=== PATIENT | male | born 1950 | race Caucasian/White ===

== ENCOUNTER 2023-09-19 06:40 | Day surgery (SDC) | payer OTHER, SELFPAY ==
[2023-09-12 07:39] VITALS: BMI 26.1
[2023-09-12 08:20] LABS: % Basophils 0.5 % (0-2); % Eosinophils 3.2 % (0-6); % Immature Granulocytes 0.3 % (0-0.5); % Lymphocytes 34.3 % (20.5-51.1); % Monocytes 8.5 % (1.7-9.3); % Neutrophils 53.2 % (42.2-75.2); Absolute Eosinophils 0.2 10^3/uL (0-0.7); Absolute Lymphocytes 2.3 10^3/uL (1.2-3.4); Absolute Monocytes 0.6 10^3/uL (0.1-0.6); Absolute Neutrophils 3.5 10^3/uL (1.4-6.5); Hematocrit 41.9 % (39.0-52.0); Hemoglobin 14.1 g/dL (13.0-18.0); Mean Corp Hgb Conc. 33.7 g/dL (33.0-37.0); Mean Corpuscular Hgb 29.6 pg (27.0-31.0); Mean Platelet Volume 9.3 fL (7.4-10.4); Nucleated Red Blood Cells % 0 % (-); Platelet Count 208 10^3/uL (130-400); Red Blood Cell Count 4.76 10^6/uL (4.70-6.10); White Blood Cell Count 6.6 10^3/uL (4.8-10.8)
[2023-09-12 08:44] LABS: ALT (SGPT) 33 U/L (0-50); AST (SGOT) 30 U/L (17-59); Albumin 4.2 g/dl (3.5-5.0); Alkaline Phosphatase 70 U/L (38-126); Blood Urea Nitrogen 19 mg/dl (9-20); Calcium 9.7 mg/dl (8.4-10.2); Carbon Dioxide 27 mmol/L (22-30); Chloride 101 mmol/L (98-107); Estimated Creatinine Clearance 88 ml/min; Glucose 149 mg/dl (70-99); Potassium 4.2 mmol/L (3.5-5.1); Sodium 139 mmol/L (135-145); Total Bilirubin 0.7 mg/dl (0.2-1.3); Total Protein 6.8 g/dl (6.3-8.2); eGFR > 60.00
[2023-09-19] VITALS (13 sets, daily range): BP systolic 121–149; BP diastolic 57–68
[2023-09-19 08:29] LABS: Glucose - Point of Care 139 mg/dl (70-99)
[2023-09-19] MEDS: NSS 500 IV (08:34)
--- NOTE | 2023-09-19 14:07 | ITS.CL.PACE ---
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
Pacemaker Implant
Procedure Report:
Dual Chamber Pacemaker Placement:
Mr. Messer is a very pleasant 73 yrs old gentleman who presented with syncope and non-sustained VT on Holter with baseline bradycardia and long pauses on the Hoter. He is here for an EP study with induction to estimate the need for ICD. He is
recommended for PPM placement for his severe symptomatic bradycardia and +/- ICD.�
Indications: Sick sinus syndrome, symptomatic bradycardia and Syncope with non-sustained VT.
Date of the Procedure: 09/19/2023
Pre-Operative Diagnosis: Syncope
Post-Operative Diagnosis: Syncope
Procedure Performed: EP study and DUAL CHAMBER PACEMAKER IMPLANTATION
Performing Physician:
Elma Montalvo MD
Anesthesia:
See anesthesia records
Pre-operative antibiotics:
Ancef 2gm IV
Detailed Description of the Procedure:
The patient was identified using hospital identification and informed consent obtained for the procedure. The risks were explained including, but not limited to: Bleeding, infection, arrhythmia, stroke, vascular/cardiac/lung puncture, surgery,
pacemaker dependency/device malfunction. All questions were answered.
The patient was brought to the electrophysiology laboratory in stable condition in fasting state. Continuous electrocardiographic and hemodynamic monitoring was initiated. The initial rhythm was sinus severe bradycardia.
A surgical pause and time out was performed immediately prior to the procedure with review of her medical history, recent labs, allergies and medications with site of procedure identified and consent noted in the chart. Antibiotics pre operatively
given. All team members concurred.
The procedure site was meticulously prepared with surgical scrub and allowed to dry with no pooling. Sterile draping was applied to cover the procedure site. The image intensifier was draped with sterile bag and positioned over the patient.
The left infraclavicular region was prepped and draped in the usual sterile fashion. Local anesthesia was administered subcutaneously using 1% lidocaine / Bupivacaine.
EP study and Arrhythmia Induction:
Following infiltration with local anesthetic, the axillary vein was accessed using the ultrasound and fluoroscopic guidance using the micro-puncture apparatus. The vascular sheaths were introduced for lead access. The leads were advanced into the
right ventricle and the right atrium.
The EP study was done using the leads. Programmed stimulation were delivered from the RVa. The program stimulation from the RV also attempted.
The ventricular ERP was 600/250msec. Using MUSTT protocol, the RV was stimulated till 600/200/200/200 and 400/200/200/200msec.
No sustained arrhythmia was inducible. The EP study was negative for any sustained inducible arrhythmia and PPM was recommended for symptomatic bradycardia for sick sinus syndrome.
PPM placement:
The lead was then positioned at the apical septal location and adequate passive signals noted. The right ventricular lead was secured in position with an active fixation technique at the apical septal location.
Then the atrial lead was secured with active fixation at the RAA location.
There was excellent sensing, pacing, and impedance from the leads, with no diaphragmatic stimulation at 10 V output.�Bovie cautery, antibiotics, and fluoroscopy were used.
The sheaths were withdrawn, and the thresholds remained acceptable. The leads were secured in position at the venous entry site with 0-silk. A pocket was fashioned contiguous to the incision. The electrode terminals were connected to the pulse
generator, which was placed into the pocket. The wound was irrigated thoroughly with antibiotic solution and closed in 3 layers using 2-0 V loc then 2 layers of 4-0 V loc sutures to the dermis.
Procedure End:
The procedure was tolerated well.
Estimated Blood loss:
5 cc
Specimens Removed:
No cultures and no specimens were obtained. No intraoperative pathology was identified.
Fluoro time:
0.8 min / 1.7mGy
Urine output:
None
Packs / Drains/ Tubes:
None
Instrument / Sponge Count Correct:
Yes
Complications of the Procedure:
None
Condition of Patient at Time of Transfer:
Hemodynamically stable with no neurological or vascular compromise.
Device information:�
Generator: [employer]; Model: W1DR01; Serial # [id number]�
Atrial Lead: [employer]; Model: 5076-45; Serial # [id number]�
Measured data in the right atrium was sensing of 1.5 mV, impedance of 380 ohms and threshold of 1.0V at 0.4ms.
RV Lead: [employer]; Model: 5076-52; Serial # [id number]
Measured data in the RV lead was sensing of 7mV, impedance of 870ohms and threshold of 1.0V at 0.4ms�
[place] parameter settings were AAIR <=>DDDR 60-130 bpm. �
����������� Mode Switch: On
����������� Paced AV interval: 180ms
����������� Sensed AV interval: 150 ms.
����������� Rate Adaptive A-V Interval: Off
Output� parameters:
����������������������� Amplitude (V)������������� Pulse Width (ms)������� Sensitivity (mV)
����������� RA: ����� 3.5 ����������������� 0.4������������������ 0.3
����������� RV:������ 3.5������������������ 0.4������������������ 0.9
Summary:
Successful implantation of MRI compatible dual chamber Medtronic pacemaker
Results/Recommendations:
-Please follow up CXR�
1. Please provide patient with adequate pain control�
Instructions to be given to patient:�
- Please follow up with [facility] at [address] [place] [address] ([phone]) to get your wound checked within 14 days of your discharge.
- Do not wet incision site until after it is evaluated at cardiology clinic. No showers until then. Sponge baths are OK.�
- No swimming until cleared by the cardiology clinic.
- Do not lift left elbow above shoulder, particularly with sudden jerking movements, for 1 month�
- Do not lift anything weighing more than 10 pounds with the left arm for 1 month�
- If you notice any fevers, shortness of breath, lightheadedness, chest pain, or worsening swelling in the wound site, please contact the arrhythmia clinic, contact your plant inspector, or present to the hospital for evaluation.�
Elma Montalvo MD
Electrophysiology
[2023-09-19 15:02] LABS: Glucose - Point of Care 116 mg/dl (70-99)
--- NOTE | 2023-09-19 15:24 | PTCARENOTE ---
Received pt from laborer general [facility] x3. Left ACW site w/ aquacel dressing intact. VSS. Pt denies chest pain. Will monitor.
--- NOTE | 2023-09-19 15:45 | CM ---
Chart reviewed. Patient is independent of ADLS, lives with his in a 2 STH, 2 KEVIN, 0 DME. Plan is for the patiient to return home with no needs. CM to follow
[2023-09-19] MEDS: ZETIA 10 MG PO (16:13)
[2023-09-19] MEDS: AMARYL 3 MG PO (16:14)
[2023-09-19] MEDS: GLUCOPHAGE 1000 MG PO (16:14)
[2023-09-19 18:16] LABS: Glucose - Point of Care 190 mg/dl (70-99)
--- NOTE | 2023-09-19 18:18 | PTCARENOTE ---
Blood glucose 190. Pt's last meal 1 hour and 45 minutes prior. No coverage given. Will monitor.
[2023-09-19] MEDS: ANCEF 5 IV (19:57)
[2023-09-19] MEDS: FLUSH (NSS) 2 FLUSH IV (19:58)
[2023-09-19] MEDS: TOPROL XL 25 MG PO (19:58)
[2023-09-19 21:52] LABS: Glucose - Point of Care 135 mg/dl (70-99)
--- NOTE | 2023-09-19 22:19 | PTCARENOTE ---
OOB in room. Denies any complaints of pain or discomfort. Left chest pacer site wnl.
[2023-09-20 04:15] VITALS: BP 119/70
[2023-09-20] MEDS: ANCEF 5 IV (04:17)
[2023-09-20] MEDS: FLUSH (NSS) 2 FLUSH IV (04:17)
[2023-09-20 05:06] LABS: Hematocrit 36.6 % (39.0-52.0); Hemoglobin 12.6 g/dL (13.0-18.0); Mean Corp Hgb Conc. 34.4 g/dL (33.0-37.0); Mean Corpuscular Volume 87.1 fL (80.0-94.0); Mean Platelet Volume 9.6 fL (7.4-10.4); Platelet Count 194 10^3/uL (130-400); Red Cell Dist. Width 13.1 % (11.5-14.5); White Blood Cell Count 8.5 10^3/uL (4.8-10.8)
[2023-09-20 05:25] LABS: Blood Urea Nitrogen 22 mg/dl (9-20); Calcium 8.9 mg/dl (8.4-10.2); Carbon Dioxide 21 mmol/L (22-30); Chloride 106 mmol/L (98-107); Estimated Creatinine Clearance 88 ml/min; Glucose 100 mg/dl (70-99); Sodium 135 mmol/L (135-145); eGFR > 60.00
[2023-09-20 05:34] LABS: Potassium 4.1 mmol/L (3.5-5.1)
[2023-09-20 06:47] VITALS: BP 123/75
[2023-09-20 06:50] LABS: Glucose - Point of Care 110 mg/dl (70-99)
[2023-09-20] MEDS: TRICOR 145 MG PO (08:26)
[2023-09-20] MEDS: CARDURA 1 MG PO (08:26)
[2023-09-20] MEDS: CRESTOR 40 MG PO (08:27)
[2023-09-20] MEDS: JARDIANCE 25 MG PO (08:27)
[2023-09-20] MEDS: TOPROL XL 25 MG PO (08:27)
[2023-09-20] MEDS: GLUCOPHAGE 1000 MG PO (08:27)
--- NOTE | 2023-09-20 09:10 | W.PN.CARDCBS ---
Addendum entered and electronically signed by Edy Messina MD 09/20/23 13:08:
73 yo male with syncope, symptomatic bradycardia admitted following EP study and MDT dual chamber PPM. There was no inducible VT. He feels well and offers no complaints. Exam with RRR, no murmurs, no edema. Tele: A paced. Brief SVT.
Stable for discharge post-PPM with office follow up.
Original Note:
Today's Communication / Plan
-
stable for d/c home
Impression / Plan
-
Primary care physician: Dr. Ventura
Primary quad stayer: Deep Castellanos MD
73 yrs old gentleman who presented with syncope and non-sustained VT on Holter with baseline bradycardia and long pauses on the Hoter. He is here for an EP study with induction to estimate the need for ICD. He is recommended for PPM placement for
his severe symptomatic bradycardia and +/- ICD.�
Impression/Plan:
Syncope/NSVT/pauses - post EP study non inducible for VT and DC PPM placement 09/19/23
site stable, CXR no PTX, tele with one episode of SVT, Apaced
Will resume Toprol 25 bid
No afib seen will stop OAC Eliquis, will monitor with device checks
Activity restrictions reviewed
inc check in 1 week
HTN - continue toprol 25mg bid and doxazosin
mixed hyperlipidemia - continue rosuvastatin 40mg, ezetimibe 10, and fenofibrate
NIDDM - continue metformin 100mg bid, glimepiride 3mg, jardiance 25mg, and ozempic
stable for d/c home today
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
Subjective
Date of Service: September 20, 2023
no cp, sob, mild inc pain
Objective
Labs:
09/20/23 04:33
09/20/23 04:33
Labs
Hgb 12.6 g/dL (13.0-18.0) L 09/20/23 04:33
Hct 36.6 % (39.0-52.0) L 09/20/23 04:33
Plt Count 194 10^3/uL (130-400) 09/20/23 04:33
Sodium 135 mmol/L (135-145) 09/20/23 04:33
Potassium 4.1 mmol/L (3.5-5.1) 09/20/23 04:33
BUN 22 mg/dl (9-20) H 09/20/23 04:33
Creatinine 0.7 mg/dL (0.7-1.3) 09/20/23 04:33
Glucose 100 mg/dl (70-99) H 09/20/23 04:33
Vital Signs and I&O:
Vital Signs
Temp Pulse Resp BP Pulse Ox
98.2 F 64 20 123/75 96
09/20/23 06:46 09/20/23 09:00 09/20/23 06:46 09/20/23 08:26 09/20/23 06:46
Vital Signs
Temp Pulse Resp BP Pulse Ox
98.2 F 64 20 123/75 96
09/20/23 06:46 09/20/23 09:00 09/20/23 06:46 09/20/23 08:26 09/20/23 06:46
Intake & Output
09/18/23 09/19/23 09/20/23 09/21/23
06:59 06:59 06:59 06:59
Intake Total 40 / 40
Balance 40 / 40
Physical Exam
Physical Exam
NAD, AOX3
S1, S2, RRR
CTAB, non labored
SNTND Bsx4
L CW AQuacel dressing c/d/i no HT
[2023-09-20 09:29] LABS: Glycohemoglobin (HgbA1c) 6.7 % (4.0-5.6)
--- NOTE | 2023-09-20 10:24 | W.DS.TRANS ---
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
-
Discharge Instructions:
Discharge Diagnosis/Procedures EP study with Pacemaker implant
Diet Low Cholesterol,Diabetic, Carb Controlled
Driving Restrictions No driving for 1 week
Bathing Restrictions OK to Shower
Stop these medications: STOP eliquis permanently
Instructions:
Stand-Alone Forms: DC Inst - Implanted Device
Changes to Home Medications: Yes
Discharge Medications:
DC Medications w/original date entered in [employer]
doxazosin 1 mg tablet 1 mg PO DAILY Blood Pressure 09/19/23
empagliflozin 25 mg tablet (Jardiance) 25 mg PO DAILY Diabetes 09/19/23
ezetimibe 10 mg tablet 10 mg PO QPM Diabetes 09/19/23
fenofibrate 120 mg tablet 130 mg PO DAILY High Cholesterol 09/19/23
glimepiride 2 mg tablet 3 mg PO QPM Diabetes 09/19/23
metformin 1,000 mg tablet 1,000 mg PO BID Diabetes 09/19/23
metoprolol succinate 25 mg tablet,extended release 24 hr 25 mg PO BID Blood Pressure 09/19/23
uehtmhiyrreo-bqnwaegc-jlamsu tablet 1 tab PO DAILY 09/19/23
psyllium 1 packet PO DAILY 09/19/23
rosuvastatin 40 mg tablet 40 mg PO DAILY 09/19/23
semaglutide 0.25 mg or 0.5 mg (2 mg/3 mL) subcutaneous pen injector (Ozempic) 0.5 mg SC QWEEK 09/19/23
Home Medication Changes
stopped eliquis, restarted metoprolol
Pending Results: No
== END 2023-09-20 11:53 | disposition home or self-care (01) ==
LOC: CATH 06:40
PROVIDERS: Nurse Practitioner; ATTENDING PHYSICIAN Internal Medicine Cardiovascular Disease; FAMILY PHYSICIAN Family Medicine; OTHER PHYSICIAN Internal Medicine Cardiovascular Disease
DX: I49.5 Sick sinus syndrome (principal); R00.1 Bradycardia, unspecified; R55 Syncope and collapse; I47.29 Other ventricular tachycardia; I10 Essential (primary) hypertension; E78.5 Hyperlipidemia, unspecified; E11.9 Type 2 diabetes mellitus without complications; Z79.84 Long term (current) use of oral hypoglycemic drugs
CPT/HCPCS: 33208; 93620; 36415; 71045; 80048; 80053; 82962; 83036; 85025; 85027; 93005; C1730; C1785; C1892; C1898

== ENCOUNTER 2024-04-28 20:06 | Emergency (ER) | payer OTHER, SELFPAY ==
[2024-04-28 20:11] VITALS: BP 139/62
--- NOTE | 2024-04-28 22:53 | ED.GENMED ---
History of Present Illness
General
Chief Complaint: Fall
Source: patient
Exam Limitations: none
Time Seen by Provider: 04/28/24 21:59
History of Present Illness
History of Present Illness:
This is a 74 year old male that comes in with c/o fall. States that he missed the step and fell face first. States that this was around 7:30pm. states that there was no LOC and he is not on any blood thinners. States that his nose is sore and he
has abrasion on both knees with discomfort of the right knee. Denies any fever, chills, chest pain, SOB, abd pain, nausea, vomiting, diarrhea, headache, dizziness.
Past History
Past History
ED Past Medical History: Arrthythmia (SVT), Hypercholesterolemia and NIDDM; Negative HTN (Patient denies)
ED Past Surgical History: Cardiac (Pacemaker) and Orthopedic (Bilateral knee surgery)
Social History
Tobacco: Former smoker
Alcohol: None
Personal:
Living: with family
Review of Systems
Review of Systems
All Other Systems: ROS reviewed and negative except as documented in HPI and ROS
Constitutional: Reports no symptoms; Denies fever or chills
EENT: Reports no symptoms
Respiratory: Reports no symptoms; Denies cough or trouble breathing
Cardiac: Reports no symptoms; Denies chest pain
ABD/GI: Reports no symptoms; Denies abdominal pain, nausea, vomiting or diarrhea
: Reports no symptoms
Musculoskeletal: Reports joint pain (Right knee discomfort) and other (Swelling of the nose with abrasion)
Skin: Reports other (facial abrasion of forehead , nose)
Neurological: Reports no symptoms; Denies dizzy or headache
Psychiatric: Reports no symptoms
Phy Exam
General Physical Exam
General Presentation: no apparent distress
General age: appears stated age
General Skin: warm and dry
General Habitus: elderly
General Mental: alert
General Hydration: appears well hydrated
ENT Exam
ENT Exam: TM's normal, pharynx normal and neck supple
Eye Exam
Eye Exam: EOMI
Cardiovascular Exam
Cardiovascular Exam: regular rate/rhythm and normal peripheral pulses
Pulmonary Exam
Pulmonary Exam: lungs clear, no respiratory distress, no rales, chest non tender, no crackles, no rhonchi, no wheezing and no cough
Gastrointestinal Exam
Gastrointestinal Exam: normal bowel sounds, non tender, soft, no organomegaly, no pulsatile mass and non distended
Musculoskeletal Exam
Musculoskeletal Exam: full ROM and edema (slight nonpitting lower leg edema)
Skin Exam
Skin Exam: normal color, warm/dry, no petechia, laceration (Right lateral nose ) and other (abrasion of the forehead down the nose, abrasion to both knee's)
Psychiatric Exam
Psychiatric Exam: normal mood/affect
Course
Orders/Labs/Results
Orders:
Orders
04/28/24 22:40
CT Facial Bones W/o Iv Contras Urgent
Comment:
Reason For Exam: fall face first
CT Head W/o Iv Contrast Urgent
Comment:
Reason For Exam: fall hitting head and face
04/28/24 22:52
Knee, Right 4 or More Views [CR Knee- Right 4 Or More View*] Urgent
Comment:
Reason For Exam: FALL, kNEE PAIN
04/28/24 23:01
Tetanus/Diphth/Acelpertussis [Adacel] 0.5 ml IM .ONCE ONE
Vital Signs
Initial and Last Documented VS:
Initial Vital Signs
Temp Pulse Resp BP Pulse Ox
98.1 F 76 16 139/62 97
04/28/24 20:11 04/28/24 20:11 04/28/24 20:11 04/28/24 20:11 04/28/24 20:11
Last Documented Vital Signs
Temp Pulse Resp BP Pulse Ox
98.1 F 73 14 133/57 95
04/28/24 20:11 04/28/24 23:29 04/28/24 23:29 04/28/24 23:29 04/28/24 23:29
Procedures
Laceration Closure
Right Lateral Nose:
Status of Wound: clean
Size of Wound in cm: 2
Description of Wound Edges: sharp
Preparation: cleaned with saline
Anesthesia: 1% Lidocaine
Revision/Debridement: routine- no revision
Wound exploration: explored to base- no FB
Type of Closure: single layer closure
Skin Closure Material: 6-0 prolene
Number of sutures: 2
MDM/Problems Addressed
Differential Diagnosis Includes:
Nasal fracture, Subdural hematoma.
MDM/Problems Addressed:
This is a 74 year old male that comes in with c/o fall. States that he missed the step and fell face first onto the concrete. Denies any LOC
Laceration repair. CT head and facial bones. Will give Adacel.
back into see patient and . Explained that the head CT is negative for any acute process but the facial CT shows that he has a nasal fracture. There is also a possible patella fracture. Patient states that he has not pain when walking. Will
place an debi wrap on knee and follow up the orthopedic specials. Will also have patient follow up with the ENT specialist. Patient to return with any concerns.
Chronic conditions affecting care:
NA
Acute Exacerbation and/or Progression of Chronic Illness:
NA
*Radiology
Radiology exam reviewed: preliminary read by ED provider (right knee - Questionable proximal patella fracture), radiology read reviewed (CT head-No acute intracranial injury. No acute intracranial hemorrhage, mass effect, or midline shift. Mild
microangiopathy. No scalp hematoma or skull fractures. Maxillofacial: Acute displaced nasal bone fractures. Moderate overlying soft tissue swelling. Orbital hinds and floors are intact. ) and other (CT cont Bilateral globes are symmetric. Paranasal
sinuses and mastoid air cells are well aerated.)
*Pulse Oximetry
Patient hypoxic: no
*EKG
Interpreted by ED Provider?: Yes
Rate: EKG- N/A
*Field Recorder Interpretation
Rate: Field Recorder- N/A
*Critical Care Note
Total Time (30-74mins, 75-104mins- exclusive of procedures): Not Applicable
ED Attending Note
-
Portions of this chart may have been created with voice recognition software.� Occasional wrong word or��sound alike� substitutions may have occurred due to the inherent limitations of voice recognition software.
Discharge Plan
Departure
Patient Disposition: Home (Routine Discharge)
Date of Disposition: 04/29/24
Time of Disposition: 00:12
Patient with high blood pressure during this ER visit?: Yes
Condition: Good
Covid-19: Not Applicable
Discharge Problem:
Accidental fall, Abrasion of face, Laceration of nose, Fracture, patella
Instructions: Patella Fracture (DC), Laceration Repair With Stitches (DC), Skin Abrasions (DC), Nose Fracture ED, BLOOD PRESSURE
Prescriptions:
New
cephalexin 500 mg capsule
500 mg PO BID 7 Days Qty: 14 0RF
No Action
psyllium Packet
1 packet PO DAILY
glimepiride 2 mg Tablet
3 mg PO QPM
metformin 1,000 mg Tablet
1,000 mg PO BID
metoprolol succinate 25 mg Tablet Extended Release 24 Hr
25 mg PO BID
zxqsbyndfkin-gznlsshh-fnpxae Tablet
1 tab PO DAILY
ezetimibe 10 mg Tablet
10 mg PO QPM
rosuvastatin 40 mg Tablet
40 mg PO DAILY
fenofibrate 120 mg Tablet
130 mg PO DAILY
Jardiance 25 mg Tablet
25 mg PO DAILY
Ozempic 0.25 mg or 0.5 mg (2 mg/3 mL) Pen Injector
0.5 mg SC QWEEK
doxazosin 1 mg tablet
1 mg PO DAILY
Referrals:
Mio,Edwin D., MD [Active] - Follow up in 2-3 days
Ya Ventura DO [Family Provider] -
Lillie Kim MD [Active] - Follow up in 5-7 days
Activity Restrictions/Additional Instructions:
As discussed, your CT of the head is negative for any acute process. Your CT of the facial bones shows that you have a nasal fracture. You also had a laceration on the right sided of the nose that has been sutured. Please keep this area dry for the
next 24 hours and then you can gently wash over the laceration and abrasion but do not scrub. Bacitracin to all the abrasion. Follow up with the ENT specialist for further evaluation. You have also been place on an antibiotic due to the fracture and
all the bleeding in the nose. Please follow up with the business performance specialist for the right knee. Wear the debi for comfort.Tylenol as needed for any headache pain. You have also received a Adacel injection. this will cover your for Tetanus,
Diphtheria and pertussis. IF YOU HAVE ANY OTHER CONCERNS PLEASE RETURN TO THE EMERGENCY ROOM.
Interventions
Interventions:
*Risk Screen - Suicide Last Done: 04/28/24 21:21
*General Assessment Last Done: 04/28/24 21:21
*Neglect/Abuse Screening Last Done: 04/28/24 21:21
*ED COVID-19 Vaccine History Last Done: 04/28/24 23:27
ED-Musculoskeletal Assessment Last Done: 04/28/24 21:19
ED- Neurological Assessment Last Done: 04/28/24 21:19
ED-Skin Assessment Last Done: 04/28/24 21:19
Discharge Date and Time
Print Language: SRI LANKAN
[2024-04-28 23:27] VITALS: BMI 22.4
[2024-04-28 23:29] VITALS: BP 133/57
[2024-04-28] MEDS: ADACEL 0.5 ML IM (23:30)
[2024-04-29] MEDS: KEFLEX 500 MG PO (00:33)
== END 2024-04-29 00:50 | disposition home or self-care (01) ==
LOC: EMR 20:06
PROVIDERS: EMERGENCY PHYSICIAN Emergency Medicine; FAMILY PHYSICIAN Family Medicine
DX: S02.2XXA Fracture of nasal bones, initial encounter for closed fracture (principal); S01.21XA Laceration without foreign body of nose, initial encounter; S82.001A Unspecified fracture of right patella, initial encounter for closed fracture; W10.9XXA Fall (on) (from) unspecified stairs and steps, initial encounter; Z23 Encounter for immunization; Z87.891 Personal history of nicotine dependence
CPT/HCPCS: 99284; 12011; 90471; 70450; 70486; 73564; 90715

== ENCOUNTER 2024-09-24 15:54 | Inpatient (IN) | payer OTHER, SELFPAY ==
[2024-09-24] VITALS (23 sets, daily range): BP systolic 98–163; BP diastolic 46–82; BMI 21.6
[2024-09-24 12:38] LABS: % Basophils 0.2 % (0-2); % Immature Granulocytes 0.7 % (0-0.5); % Lymphocytes 4.3 % (20.5-51.1); % Monocytes 7.8 % (1.7-9.3); Absolute Immature Granulocytes 0.1 10^3/uL (0-0.05); Absolute Lymphocytes 0.7 10^3/uL (1.2-3.4); Absolute Monocytes 1.2 10^3/uL (0.1-0.6); Absolute Neutrophils 13.5 10^3/uL (1.4-6.5); Hematocrit 45.7 % (39.0-52.0); Hemoglobin 15.1 g/dL (13.0-18.0); Mean Corpuscular Hgb 28.8 pg (27.0-31.0); Mean Corpuscular Volume 87.2 fL (80.0-94.0); Mean Platelet Volume 9.1 fL (7.4-10.4); Nucleated Red Blood Cells % 0 % (-); Platelet Count 286 10^3/uL (130-400); Red Blood Cell Count 5.24 10^6/uL (4.70-6.10); Red Cell Dist. Width 13.6 % (11.5-14.5); White Blood Cell Count 15.5 10^3/uL (4.8-10.8)
[2024-09-24 12:53] LABS: ALT (SGPT) 26 U/L (0-50); AST (SGOT) 25 U/L (17-59); Albumin 4.8 g/dl (3.5-5.0); Alkaline Phosphatase 69 U/L (38-126); Blood Urea Nitrogen 23 mg/dl (9-20); Calcium 9.8 mg/dl (8.4-10.2); Carbon Dioxide 8 mmol/L (22-30); Chloride 103 mmol/L (98-107); Glucose 281 mg/dl (70-99); Potassium 4.2 mmol/L (3.5-5.1); Sodium 136 mmol/L (135-145); Total Bilirubin 1.2 mg/dl (0.2-1.3); Total Protein 7.5 g/dl (6.3-8.2); eGFR > 60.00
[2024-09-24] MEDS: ZOFRAN ODT (ORALLY DISINTEGRATING) 4 MG PO (14:00)
--- NOTE | 2024-09-24 15:06 | HPS.HSE ---
Family Physician
-
Family Physician: Ya Ventura
Chief Complaint
-
bloody urine
History of Present Illness
74-year-old with past medical history for SVT, hyperlipidemia, diabetes, hypertension, urinary retention self cath presented to us with hematuria since this morning. Patient stated lower back, penis and testicular pain since yesterday. He was
having chills today. He has been nauseous and vomited once. Denied headache or dizziness syncope. Patient denied fever patient denied chest pain,. Cough, nasal congestion, short of breath. Denied abdominal pain. Patient was evaluated at the
urology office for hematuria. Patient was prescribed antibiotics for possible UTI. He was nauseous at the urology office so he was asked to come to the ER.
Patient was noted to have a WBC of 15.5, CO2 8 and tachycardia. Blood culture sent from ER. Patient received morphine, normal saline, Zofran, Zosyn in ER. Admitting for further management
Medical History
Past Medical History
Past Medical History: Reports Other
Additional Past Medical History:
Hyperlipidemia
Hypertension
CKD
Neurogenic bladder type 2 diabetes
SVT sick sinus syndrome
Pacemaker
Past Surgical History: Reports Other
Additional Past Surgical History:
Pacemaker
Social History
Tobacco: Non-smoker
Alcohol: None
Drug: None
Personal:
Living: With Family
Family History
Family History: Not pertinent
Allergies / Home Medications
Allergies reflects when Allergies were last updated in [employer].
Home Medications with original date entered in [employer]
Allergy/Medication List:
Allergies
Allergy/AdvReac Type Severity Reaction Status Date / Time
lisinopril Allergy Unknown Unknown Verified 09/24/24 12:05
Home Medications
doxazosin 1 mg tablet 1 mg PO DAILY Blood Pressure 09/19/23
empagliflozin 25 mg tablet (Jardiance) 25 mg PO DAILY Diabetes 09/19/23
ezetimibe 10 mg tablet 10 mg PO QPM Diabetes 09/19/23
fenofibrate 120 mg tablet 130 mg PO DAILY High Cholesterol 09/19/23
glimepiride 2 mg tablet 3 mg PO QPM Diabetes 09/19/23
metformin 1,000 mg tablet 1,000 mg PO BID Diabetes 09/19/23
metoprolol succinate 25 mg tablet,extended release 24 hr 25 mg PO BID Blood Pressure 09/19/23
ilmurujvezhe-ibvhqwab-wxmoex tablet 1 tab PO DAILY 09/19/23
psyllium 1 packet PO DAILY 09/19/23
rosuvastatin 40 mg tablet 40 mg PO DAILY 09/19/23
semaglutide 0.25 mg or 0.5 mg (2 mg/3 mL) subcutaneous pen injector (Ozempic) 0.5 mg SC QWEEK 09/19/23
cephalexin 500 mg capsule 500 mg PO BID Skin issues 7 days #14 caps 04/29/24
Review of Systems
-
Constitutional: Reports No Symptoms
EENT: Reports No Symptoms
Respiratory: Reports No Symptoms
Cardiac: Reports No Symptoms
Abdomen/GI: Reports Nausea and Vomiting
: Reports No Symptoms, Flank Pain and Bleeding
Musculoskeletal: Reports No Symptoms
Skin: Reports No Symptoms
Neurological: Reports No Symptoms
Endocrine: Reports No Symptoms
Hematologic/Lymphatic: Reports No Symptoms
Psych: Reports No Symptoms
Physical Exam
Vital Signs
Vital Signs
Temp Pulse Resp BP Pulse Ox
97.6 F 113 18 163/82 96
09/24/24 11:59 09/24/24 14:10 09/24/24 14:10 09/24/24 14:10 09/24/24 14:10
Physical Exam
General: Well Developed, Well Nourished and No Apparent Distress
HEENT: NormoCephalic, Moist mucous membranes and Atraumatic
Respiratory: Clear
Cardiac: S1/S2 and Regular Rhythm; No Murmur or Rub
GI: Soft, Non Tender, Non Distended and Normal Bowel Sounds; No Organomegaly
Rectal: Deferred by Provider
Musculoskeletal: No Clubbing, No Cyanosis and No Edema
Skin: No Rash
Neuro: AO x 3 and Nonfocal/grossly intact
Psych: Calm
Laboratory Results
-
09/24/24 12:09
09/24/24 12:09
Laboratory Results
Total Bilirubin 1.2 mg/dl (0.2-1.3) 09/24/24 12:09
AST 25 U/L (17-59) 09/24/24 12:09
ALT 26 U/L (0-50) 09/24/24 12:09
Alkaline Phosphatase 69 U/L (38-126) 09/24/24 12:09
Data Reviewed
-
Lab Data: Labs Reviewed by me
Impression/Plan
-
# Chills likely from cath associated urinary tract infection
#hst of urinary retention
-sepsis as evident by WBCs 15.5, tachy
-Blood culture sent from ER
-CT abdomen pelvis pending
-Chest x-ray pending
-Zosyn in ER,which will be continued
-urology consulted
#High anion gap Metabolic acidosis likely from sepsis
#possible DKA
-CO2 8,anion gap 25
-Normal saline continued
-lactic pending,B-hydroxybutyrate pending
-obtain ABG
-insulin drip continued
-hold oral DM agents
# History of SVT/pulses
-Pacemaker placement 09/19/2023
#HTN - continue Toprol 25mg bid and doxazosin
#mixed hyperlipidemia - continue rosuvastatin, ezetimibe 10, and fenofibrate
#NIDDM - hold all oral DM medication, sliding scale, CHO diet
#DVT prophylaxis
-Lovenox
#CODE status
-full code
--- NOTE | 2024-09-24 15:07 | ED.GENMED ---
History of Present Illness
General
Chief Complaint: Urinary Symptoms
Source: patient and physician
Exam Limitations: none
Time Seen by Provider: 09/24/24 14:36
Nursing documentation reviewed up to this point in time: agreed with
History of Present Illness
History of Present Illness:
74-year-old male diabetic intermittent self-catheterization presents with fever chills nausea had some hematuria yesterday after catheterization, saw his urologist given Bactrim, referred to the ER here has metabolic acidosis, and flank pain, he is
on several oral and subcu diabetes meds no insulin Jardiance, Ozempic, no chest pain or shortness of breath
Past History
Past History
ED Past Medical History: Arrthythmia (SVT), Hypercholesterolemia and NIDDM; Negative HTN (Patient denies)
ED Past Surgical History: Cardiac (Pacemaker), Orthopedic (Bilateral knee surgery) and Urological (Neurogenic bladder)
Social History
Tobacco: Former smoker
Alcohol: None
Personal:
Living: with family
Employment: Retired
Review of Systems
Review of Systems
All Other Systems: Not applicable
Constitutional: Reports fever, fatigue and chills
EENT: Reports no symptoms
Respiratory: Reports no symptoms
Cardiac: Reports no symptoms
ABD/GI: Reports nausea
: Reports bleeding
Musculoskeletal: Reports no symptoms
Phy Exam
Physical Exam
Physical Exam:
Physical Exam
General: 74 male looks uncomfortable
Neck: Lips are dry
Heart: s1/s2 regular rate and rhythm, no murmur. equal radial pulses.
Lungs: no acute respiratory distress. clear bilaterally
Abdomen: Soft minimal suprapubic tenderness no blood at the meatus
Neuro: alert and oriented. no focal neurological deficits
Skin: no rash
Psychiatric: well kept. interactive and cooperative
Extremities: no edema.
Course
Orders/Labs/Results
Orders:
Orders
09/24/24 12:09
Complete Blood Count/With Diff Urgent
Comprehensive Metabolic Panel Urgent
09/24/24 13:59
Ondansetron Orally Disint [Zofran Odt (Orally Disintegrating)] 4 mg .ROUTE .STK-MED ONE
09/24/24 14:00
Ondansetron Orally Disint [Zofran Odt (Orally Disintegrating)] 4 mg PO NOW STA
09/24/24 14:37
Urinalysis Reflex To Culture Urgent
09/24/24 14:55
Blood Culture Q30M
FARZANA Source: Blood/Venous
Specimen Description:
Blood Culture Q30M
FARZANA Source: Blood/Venous
Specimen Description:
09/24/24 14:56
CT Abd/pel Without Iv Or Oral Urgent
Comment:
Reason For Exam: flank pain hematuria
Lactic Acid Urgent
0.9% Sodium Chloride 1000 ml [Nss] 1,000 ml IV BOLUS
Morphine Sulfate 4 mg IV NOW STA
Ondansetron Injectable [Zofran] 4 mg IV NOW STA
09/24/24 14:57
B-Hydroxybutyrate Urgent
Piperacillin/Tazo 3.375 Gram [Zosyn] 3.375 gram in 50 ml IV NOW
09/24/24 15:05
CR Chest - 2 Views Urgent
Comment:
Reason For Exam: Sepsis
Abnormal Lab Results
09/24/24
12:09
WBC 15.5 H 10^3/uL
(4.8-10.8)
Abs Immat Gran (auto) 0.1 H 10^3/uL
(0-0.05)
Absolute Neuts (auto) 13.5 H 10^3/uL
(1.4-6.5)
Absolute Lymphs (auto) 0.7 L 10^3/uL
(1.2-3.4)
Absolute Monos (auto) 1.2 H 10^3/uL
(0.1-0.6)
Immature Gran % 0.7 H %
(0-0.5)
Neutrophils % 87.0 H %
(42.2-75.2)
Lymphocytes % 4.3 L %
(20.5-51.1)
Carbon Dioxide 8 L* mmol/L
(22-30)
BUN 23 H mg/dl
(9-20)
Glucose 281 H mg/dl
(70-99)
09/24/24 12:09
09/24/24 12:09
Vital Signs
Initial and Last Documented VS:
Initial Vital Signs
Temp Pulse Resp BP Pulse Ox
97.6 F 100 20 146/76 96
09/24/24 11:59 09/24/24 11:59 09/24/24 11:59 09/24/24 11:59 09/24/24 11:59
Last Documented Vital Signs
Temp Pulse Resp BP Pulse Ox
97.6 F 113 18 163/82 96
09/24/24 11:59 09/24/24 14:10 09/24/24 14:10 09/24/24 14:10 09/24/24 14:10
MDM/Problems Addressed
Differential Diagnosis Includes:
Sepsis bacteremia DKA metabolic acidosis from meds low flow state
MDM/Problems Addressed:
UTI hematuria metabolic acidosis
Chronic conditions affecting care: DM and Neurological disorder
Acute Exacerbation and/or Progression of Chronic Illness: Neurological disorder
*Radiology
Radiology exam reviewed: radiology read reviewed
*Pulse Oximetry
Patient hypoxic: no
*Rn Compliance Interpretation
Rate: normal
Interpretation: normal
Heart Rate: 78
Rhythm: sinus
*Critical Care Note
Total Time (30-74mins, 75-104mins- exclusive of procedures): 35
Update Note
Update Note:
Labs noted will add beta hydroxybutyrate lactic acid level started on IV fluids broad-spectrum antibiotics cultures check chest x-ray CT to rule out obstruction nonurgent urologic consultation has been ordered assuming no obstructing stone,
hospitalist notified of admission
ED Attending Note
-
Portions of this chart may have been created with voice recognition software.� Occasional wrong word or��sound alike� substitutions may have occurred due to the inherent limitations of voice recognition software.
Discharge Plan
Departure
Prescriptions:
No Action
psyllium Packet
1 packet PO DAILY
glimepiride 2 mg Tablet
3 mg PO QPM
metformin 1,000 mg Tablet
1,000 mg PO BID
metoprolol succinate 25 mg Tablet Extended Release 24 Hr
25 mg PO BID
rcgetecguxqo-xqfkxptf-mkisgz Tablet
1 tab PO DAILY
ezetimibe 10 mg Tablet
10 mg PO QPM
rosuvastatin 40 mg Tablet
40 mg PO DAILY
fenofibrate 120 mg Tablet
130 mg PO DAILY
Jardiance 25 mg Tablet
25 mg PO DAILY
Ozempic 0.25 mg or 0.5 mg (2 mg/3 mL) Pen Injector
0.5 mg SC QWEEK
doxazosin 1 mg tablet
1 mg PO DAILY
cephalexin 500 mg capsule
500 mg PO BID 7 Days Qty: 14 0RF
Referrals:
Ya Ventura DO [Family Provider] -
Interventions
Interventions:
*Risk Screen - Suicide Last Done: 09/24/24 11:59
*General Assessment Last Done: 09/24/24 11:59
*Neglect/Abuse Screening Last Done: 09/24/24 11:59
ED-Male Genitourinary Assessment Last Done: 09/24/24 14:43
Discharge Date and Time
Print Language: ROMANIAN
--- NOTE | 2024-09-24 15:46 | W.PN.UPDATE ---
Update Note
Progress Note Update
This note serves as an addendum to the H&P by senior oracle database developer ALIZA Tosin CHEATHAM
HPI
74M diabetic HX Neurogenic bladder , intermittent self-catheterization, HX SVT seen at ER:
- pw fever chills nausea and hematuria yesterday after catheterization
- saw his urologist given Bactrim, referred to the ER
- reports flank pain
- no chest pain or shortness of breath
PHX; see above
Reviewed VS: Afebrile. Tachycardic. Normotensive
Vital Signs
Temp Pulse Resp BP Pulse Ox
97.6 F 88 27 143/70 98
09/24/24 15:35 09/24/24 15:35 09/24/24 15:35 09/24/24 15:35 09/24/24 15:35
PE
Gen: looks tired , tachypneic
HEENT: dry OM
Neck: supple
Lungs: symmetric AE , tachypnic
Cor: RRR S1 S2
Abdomen: soft benign
PROGRAM COORDINATOR FOR [employer]: AAO3, NFND
MS: no edema
Psych: appropriate
Laboratory Tests
09/24/24 09/24/24 09/24/24
12:09 14:56 14:57
WBC 15.5 H
Potassium 4.2
Carbon Dioxide 8 L*
BUN 23 H
eGFR > 60.00
Glucose 281 H
Lactic Acid Pending
B-Hydroxybutyrate Pending
UA pending
UC pending
ASSESSMENT & PLAN
Pending Rx reconciliation
Severe hi AG MA is 25
Suspect DKA +/_ lactic acidosis due to sepsis
HX DMT2
- check ABG
- check BHB , LA
- pending UA, UCxand BCx
- Empiric Zosyn
- NS @ 120
- Insulin gtt to tirate
- Held Metformin, Jardiance and Glimepiride
- DM CORONER consult
CAUTI ; no prior UCx report in [facility]
Neurogenic bladder requires intermittent self-catheterization,
- switch to IV Zosyn in place of PO bactrim
- f/u UCx sent from from Uro office
- to temporarily place a Clark, 18fr to minimize having to self cath
- Uro consulted
Benign HTN
Tachycardic
- c/w Metoprol succinate with hold index
DVT Px: LMWH
Full code
ICU
Total Critical Care Time__55___ minutes.
I was immediately available to the patient and staff. I personally examined, reviewed labs, diagnostic images/reports, interpretations, treatment plans, discussed patient care with other providers and family or caregivers (if patient is unable to
make decisions), entered orders as appropriate and documented the medical record.
[2024-09-24] MEDS: MORPHINE SULFATE 4 MG IV (15:47)
[2024-09-24] MEDS: NSS 1000 IV ×2 (15:47→18:00)
[2024-09-24] MEDS: ZOFRAN 4 MG IV (15:47)
[2024-09-24] MEDS: ZOSYN 50 IV ×2 (15:48→21:33)
[2024-09-24 16:01] LABS: B.E. -10.3 mmol/L; HCO3 13.2 mmol/L (21-28); PCO2 24 mmHg (35-48); PO2 101 mmHg (83-108); pH 7.35 (7.35-7.45)
[2024-09-24 16:02] LABS: Lactic Acid 3.4 mmol/L (0.7-2.0)
--- NOTE | 2024-09-24 16:07 | CONS.URO ---
Consultation
-
Date/Time Consultation Requested: 09/24/24
Date/Time Consultation Performed: 09/24/24
Requesting Provider: ED
Performing Provider: Neeta
Reason for Consultation: cUTI
Medical History
History of Present Illness
74M with prior urologic h/o hypotonic neurogenic bladder maintained on CIC (self-catheterization) presents to ED w/ nausea, chills, and hematuria.
Seen this afternoon as outpatient in Urology office - evaluated by myself for hematuria, testicular pain, and chills w/o fever last night after catheterization of bladder.
Urine dip in office => +RBCs.
UA/UCx sent today.
Empirically started on Bactrim DS BID course for cUTI pending UCx data.
Of note, prior +UCx from 05/2024 demonstrated >100k E. Coli w/ intermediate sensitivity to Levaquin (sensitive to all others).
Due to nausea and chills, referred to ED.
Noted to be in DKA.
Past Medical History
Past Medical History: Arrhythmia (SVT), Hypercholesterolemia, NIDDM and Other (hypotonic neurogenic bladder (on CIC))
Past Surgical History: Cardiac (pacemaker) and Orthopedic (bilateral knee surgery)
Social History
Tobacco: Former Smoker
Alcohol: None
Drug: None
Personal:
Living: With Family
Employment: Retired
Family History
Family History: Reviewed & Not Pertinent
Allergies/Home Medications
Allergies
Allergy/AdvReac Type Severity Reaction Status Date / Time
lisinopril Allergy Unknown Unknown Verified 09/24/24 12:05
Home Medications
�Medication �Instructions �Recorded �Confirmed �Type
doxazosin 1 mg tablet 1 mg PO DAILY Blood Pressure 09/19/23 09/24/24 History
empagliflozin 25 mg tablet 25 mg PO DAILY Diabetes 09/19/23 09/24/24 History
(Jardiance)
ezetimibe 10 mg tablet 10 mg PO QPM Diabetes 09/19/23 09/24/24 History
fenofibrate 120 mg tablet 130 mg PO DAILY High Cholesterol 09/19/23 09/24/24 History
glimepiride 2 mg tablet 3 mg PO QPM Diabetes 09/19/23 09/24/24 History
metformin 1,000 mg tablet 1,000 mg PO BID Diabetes 09/19/23 09/24/24 History
metoprolol succinate 25 mg 25 mg PO BID Blood Pressure 09/19/23 09/24/24 History
tablet,extended release 24 hr
gdjmojslrfvg-rthlairp-jfmqfm 1 tab PO DAILY 09/19/23 09/24/24 History
tablet (Milltrium Senior tablet)
psyllium 1 packet PO DAILY 09/19/23 09/24/24 History
rosuvastatin 40 mg tablet 40 mg PO DAILY 09/19/23 09/24/24 History
semaglutide 0.25 mg or 0.5 mg (2 0.5 mg SC WE 09/19/23 09/24/24 History
mg/3 mL) subcutaneous pen injector
(Ozempic)
acetaminophen 325 mg tablet 650 mg PO Q4HPRN PRN mild pain 09/24/24 09/24/24 History
(Tylenol)
Review of Systems
-
History Source: Patient and Family
A 12 point Review of Systems was completed except as noted: Yes
Physical Exam
Vital Signs
Vital Signs
Temp Pulse Resp BP Pulse Ox
97.6 F 88 27 143/70 98
09/24/24 15:35 09/24/24 15:35 09/24/24 15:35 09/24/24 15:35 09/24/24 15:35
Lab / Testing Results
Laboratory Results
09/24/24 12:09
09/24/24 12:09
Physical Exam
General: No Apparent Distress, Chills and Poor Appetite
HEENT: Normocephalic and Anicteric
Respiratory: Non Labored Respirations
Cardiac: Regular Rhythm
Breast: N/A
GI: Soft, Non Tender and Non Distended
Rectal: Deferred by Provider
Genito-urinary: No Costovertebral Tend and Bloody Urine
Musculoskeletal: No Edema
Skin: Warm and Dry
Neuro: AO x 3, No Motor Deficits and Nonfocal/Grossly Intact
Hematologic/Lymphatic: No Lymphadenopathy
Psych: Calm and Intact Judgement
Assessment / Plan
-
cUTI - suspected clinically based on constitutional symptoms
H/o hypotonic neurogenic bladder (on CIC regimen)
DKA
UA +RBCs (in office today)
UA pending
WBC >15
Cr WNL
- IV antibiotics (non-fluoroquinolone) per Hospitalist
- UCx data from 05/2024 (W) reviewed
- Advise indwelling Clark catheter to minimize traumatic catheterization in light of new hematuria and cUTI
- Plan for catheter removal prior to discharge and resumption of CIC
Urology following
D/w Hospitalist.
Data Reviewed
-
Total Time Spent with Patient (in minutes): 30
Lab Data: Labs Reviewed, Discussed with Physician, Discussed with Patient and Discussed with Family
Old Records: Reviewed
[2024-09-24 17:07] LABS: Urine Albumin 4+ (Neg - Trace); Urine Bilirubin Negative (Negative); Urine Character Bloody (Clear); Urine Color Red; Urine Glucose 4+ (Negative); Urine Ketone 2+ (Negative); Urine Leukocyte 2+ (Negative); Urine Nitrite Negative (Negative); Urine Occult Blood 4+ (Negative); Urine Specific Gravity 1.025 (<1.030); Urine Urobilinogen Negative (Neg - 1+)
[2024-09-24 17:16] LABS: Urine Squamous Cell 0-2 /LPF (Few)
[2024-09-24 17:17] LABS: Urine Bacteria Many (Negative); Urine Red Blood Cell >100 /HPF (0-2); Urine White Cell >100 /HPF (0-5)
[2024-09-24 18:02] LABS: Glucose - Point of Care 181 mg/dl (70-99)
[2024-09-24] MEDS: NOVOLIN R INSULIN INFUSION 100 IV (18:30)
[2024-09-24] MEDS: D5/0.9% SODIUM CHLORIDE 1000 IV (18:38)
[2024-09-24] MEDS: LOVENOX 40 MG SC (18:39)
[2024-09-24] MEDS: ZETIA 10 MG PO (18:39)
[2024-09-24 18:57] LABS: Glucose - Point of Care 160 mg/dl (70-99)
--- NOTE | 2024-09-24 19:25 | PTCARENOTE ---
Pt received from the ER into 3356. Pt started on insulin gtt at 1830, BG 160 at the time. D5/NSS infusing. Report given to oncoming RN.
[2024-09-24 19:43] LABS: Glucose - Point of Care 156 mg/dl (70-99)
[2024-09-24] MEDS: TOPROL XL 25 MG PO (19:51)
--- NOTE | 2024-09-24 20:00 | PTCARENOTE ---
Resumed care of pt laying in bed, AAOx3. HR in the 80's in NSR on the monitor. POX 96% on RA. Lungs clear. + bowel. Clark cath in place draining bloody drainage. Pt denies penile pain at this time. Palpable peripheral pulses present. Right hand INT
infusing D5NSS @120ml/hr. Right AC INT infusing Insulin gtt per protocol. Pt denies any complaints at this time. Pt resting comfortably. WIll continue to monitor.
[2024-09-24 20:06] LABS: Blood Urea Nitrogen 26 mg/dl (9-20); Calcium 9.4 mg/dl (8.4-10.2); Carbon Dioxide 17 mmol/L (22-30); Chloride 103 mmol/L (98-107); Estimated Creatinine Clearance 67 ml/min; Glucose 175 mg/dl (70-99); Potassium 4.4 mmol/L (3.5-5.1); Sodium 137 mmol/L (135-145); eGFR > 60.00
[2024-09-24 20:08] LABS: Lactic Acid 1.6 mmol/L (0.7-2.0)
[2024-09-24 20:19] LABS: INR 1.11; PT 14.6 Sec (11.4-14.6)
[2024-09-24 20:20] LABS: APTT 33.5 Sec (23.4-35.0)
[2024-09-24 20:42] LABS: Glucose - Point of Care 151 mg/dl (70-99)
[2024-09-24 21:43] LABS: Glucose - Point of Care 149 mg/dl (70-99)
[2024-09-24 22:45] LABS: Glucose - Point of Care 128 mg/dl (70-99)
[2024-09-24 23:41] LABS: Glucose - Point of Care 129 mg/dl (70-99)
--- NOTE | 2024-09-24 23:52 | PTCARENOTE ---
Clark cath now draining more brownish/tea colored urine. Clark care provided. Oral care complete. Pt continues to deny any complaints. IVF and Insulin gtt infusing as ordered. No other changes in assessment noted at this time. Will continue to
monitor.
[2024-09-25] VITALS (16 sets, daily range): BP systolic 94–118; BP diastolic 48–61; BMI 21.7
[2024-09-25 00:06] LABS: Blood Urea Nitrogen 25 mg/dl (9-20); Calcium 9.1 mg/dl (8.4-10.2); Carbon Dioxide 20 mmol/L (22-30); Chloride 106 mmol/L (98-107); Estimated Creatinine Clearance 76 ml/min; Glucose 141 mg/dl (70-99); Potassium 4.4 mmol/L (3.5-5.1); Sodium 139 mmol/L (135-145); eGFR > 60.00
[2024-09-25 00:49] LABS: Glucose - Point of Care 134 mg/dl (70-99)
[2024-09-25 03:39] LABS: Glucose - Point of Care 127 mg/dl (70-99)
[2024-09-25] MEDS: D5/0.9% SODIUM CHLORIDE 1000 IV (03:39)
--- NOTE | 2024-09-25 04:00 | PTCARENOTE ---
Pt sleeping well t/o the night. No issues to report. Vital signs remain stable. No changes in assessment noted at this time. Will continue to monitor.
[2024-09-25] MEDS: ZOSYN 50 IV ×4 (04:41→21:29)
[2024-09-25 04:45] LABS: Glucose - Point of Care 142 mg/dl (70-99)
[2024-09-25 04:54] LABS: Hematocrit 35.5 % (39.0-52.0); Hemoglobin 12.2 g/dL (13.0-18.0); Mean Corp Hgb Conc. 34.4 g/dL (33.0-37.0); Mean Corpuscular Hgb 29.2 pg (27.0-31.0); Mean Corpuscular Volume 84.9 fL (80.0-94.0); Mean Platelet Volume 9.4 fL (7.4-10.4); Platelet Count 207 10^3/uL (130-400); Red Blood Cell Count 4.18 10^6/uL (4.70-6.10); Red Cell Dist. Width 13.8 % (11.5-14.5); White Blood Cell Count 10.8 10^3/uL (4.8-10.8)
[2024-09-25 05:01] LABS: Blood Urea Nitrogen 23 mg/dl (9-20); Calcium 8.6 mg/dl (8.4-10.2); Carbon Dioxide 20 mmol/L (22-30); Chloride 107 mmol/L (98-107); Estimated Creatinine Clearance 76 ml/min; Glucose 140 mg/dl (70-99); Glucose 157 mg/dl (70-99); Potassium 3.6 mmol/L (3.5-5.1); Sodium 138 mmol/L (135-145); eGFR > 60.00
--- NOTE | 2024-09-25 05:34 | DOWNTIME ---
There was a [employer] Downtime on 09/25/2024 from 0100 to 09/25/2023 at 0235 . Downtime documentation of patient's care, including medication administrations, has been reconciled in the electronic record per guidelines. Refer to the
patient's paper chart under the miscellaneous tab to see printed paper medication records and downtime forms.
[2024-09-25 05:41] LABS: Glucose - Point of Care 126 mg/dl (70-99)
[2024-09-25 06:49] LABS: Glucose - Point of Care 128 mg/dl (70-99)
--- NOTE | 2024-09-25 07:14 | CON.INTV ---
Consultation
Consultation Request
Date/Time Consultation Requested: 09/25/24
Date/Time Consultation Performed: 09/25/24
Performing Provider: Jonathan
Reason for Consultation: ICU
Medical History
-
History of Present Illness:
Patient is a 74-year-old M with past medical history for SVT, hyperlipidemia, diabetes, hypertension, hypotonic neurogenic bladder maintained intermittent self-catheterization, presenting to ER with hematuria, lower back pain, penile and
testicular pain, chills, N/V, since 24-48 hours prior to admission. Patient was evaluated at the urology office for hematuria and prescribed antibiotics for possible UTI. Was recommended to come to ER due to increasing complaints.
On arrival, lab indicate WBC of 15.5, CO2 8 BG 281. UA indicating possible UTI: 2+ ketones, 4+blood, 2+ LE, >100wbcs, many bacteria 4+ glucose. Blood and urine culture sent from ER. Given DKA labs, patient is placed on insulin gtt and admitted to
ICU. He is not noted to be on pressors.
Past Medical History
Past Medical History: Other
Social History
Tobacco: Non-smoker
Alcohol: None
Drug: None
Allergies / Home Medications
Allergies
Allergy/AdvReac Type Severity Reaction Status Date / Time
lisinopril Allergy Unknown Unknown Verified 09/24/24 12:05
Home Medications
�Medication �Instructions �Recorded �Confirmed �Last Taken �Type
doxazosin 1 mg tablet 1 mg PO DAILY Blood Pressure 09/19/23 09/24/24 09/24/24 History
empagliflozin 25 mg tablet 25 mg PO DAILY Diabetes 09/19/23 09/24/24 09/24/24 History
(Jardiance)
ezetimibe 10 mg tablet 10 mg PO QPM Diabetes 09/19/23 09/24/24 09/23/24 History
fenofibrate 120 mg tablet 130 mg PO DAILY High Cholesterol 09/19/23 09/24/24 09/24/24 History
glimepiride 2 mg tablet 3 mg PO QPM Diabetes 09/19/23 09/24/24 09/23/24 History
metformin 1,000 mg tablet 1,000 mg PO BID Diabetes 09/19/23 09/24/24 09/24/24 History
metoprolol succinate 25 mg 25 mg PO BID Blood Pressure 09/19/23 09/24/24 09/24/24 History
tablet,extended release 24 hr
mcedmbtmwgch-pvtwthmm-xuonvi 1 tab PO DAILY 09/19/23 09/24/24 09/24/24 History
tablet (Milltrium Senior tablet)
psyllium 1 packet PO DAILY 09/19/23 09/24/24 09/24/24 History
rosuvastatin 40 mg tablet 40 mg PO DAILY 09/19/23 09/24/24 09/24/24 History
semaglutide 0.25 mg or 0.5 mg (2 0.5 mg SC WE 09/19/23 09/24/24 09/18/24 History
mg/3 mL) subcutaneous pen injector
(Ozempic)
acetaminophen 325 mg tablet 650 mg PO Q4HPRN PRN mild pain 09/24/24 09/24/24 09/23/24 History
(Tylenol)
Review of Systems
-
History Source: Patient
All other systems: Negative unless noted
Vitals / Labs / Diagnostic Testing
Vital Signs
Temp Pulse Resp BP Pulse Ox
99.6 F 70 19 99/50 94
09/25/24 04:34 09/25/24 05:30 09/25/24 05:30 09/25/24 05:00 09/25/24 05:30
Lab Data
09/25/24 04:14
09/25/24 04:14
Laboratory Results
09/24/24 09/24/24
15:45 19:45
PT 14.6
INR 1.11
APTT 33.5
pH 7.35
pCO2 24 L
pO2 101
HCO3 13.2 L*
O2 Delivery Level
Diagnostic Testing:
Physical Exam
-
HEENT: Normocephalic, Anicteric and Moist Mucous Membranes
Cardiovascular: S1/S2 and Regular Rhythm
Respiratory: Clear and Non-Labored Respirations
GI: Soft, Non Distended and Normal Bowel Sounds
Neurology: Awake, Alert, Oriented and No Motor Deficits
Skin: Warm, Dry and Good Color
General: Comfortable and Other (NAD)
Assessment
-
Patient is a 74-year-old M with past medical history for SVT, hyperlipidemia, diabetes, hypertension, hypotonic neurogenic bladder maintained intermittent self-catheterization, presenting to ER with hematuria, lower back pain, penile and
testicular pain, chills, N/V, since 24-48 hours prior to admission. Patient was evaluated at the urology office for hematuria and prescribed antibiotics for possible UTI. Was recommended to come to ER due to increasing complaints. On arrival, lab
indicate WBC of 15.5, CO2 8 BG 281. UA indicating possible UTI: 2+ ketones, 4+blood, 2+ LE, >100wbcs, many bacteria 4+ glucose. Blood and urine culture sent from ER. Given DKA labs, patient is placed on insulin gtt and admitted to ICU. He is not
noted to be on pressors.
Urosepsis w/o shock
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
DKA
Leukocytosis
Anion gap metabolic acidosis
Lactic acidosis
Hematuria
Acute on chronic urinary obstruction with bilateral hydronephrosis
Conditions present prior to admission
Hyperlipidemia
Hypertension
CKD
Neurogenic bladder s/p ISC
Type 2 diabetes
SVT
Sick sinus syndrome s/p Pacemaker
History of E coli UTI
Plan
DKA, admitting BS elevated, AG 25
Repeat labs improving
Started on insulin drip, can wean today following protocol, start D5 IVFs
Consult diabetic nurse for insulin recommendations
Can restart diet once able to bridge
H/o diabetes, hopeful transition to home meds
HbA1c 6.7 in 2023, repeat pending
Triggers include UTI/sepsis
NPO for now
Diet transition following DKA protocol
GI ppx if indicated
Hemodynamically stable, not requiring pressors.
No prior h/o cardiac disease
ECHO in past reviewed, stable function/mild AR/LVH
Oxygen needs: Stable on RA
No prior h/o pulmonary disease
CXR reviewed, no acute disease, repeat PRN
Creat at baseline, follow UO
H/o CKD, stable creat
Acid/base status: AGMA 2/2 DKA, follow until AG <12
Follow daily weights
Fever and increased WBC on presentation, suspect underlying UTI
Started on empiric antibiotics
Cultures sent/pending
Blood
Urine
Follow fever trend, WBC count
Lactate elevated on admission, continue to trend until <2
CBC stable, no signs of bleeding or coagulopathy.
DVT prophylaxis as assessed based on risk, including mechanical SCDs
Can transfuse if indicated for Hb <7, plt < 10
Doing well, can likely transfer to [facility] once off IV insulin. We will sign off upon transfer.
Diagnostic Data
Chest X-Ray: 09/24/24- No evidence of active cardiopulmonary disease.
CT Scan: AP 09/24/24- Findings consistent with emphysematous cystitis and emphysematous left pyelitis. Bilateral hydronephrosis, left greater than right. No obstructing calculus. Cholelithiasis.
Diverticulosis without acute diverticulitis.
08/16/23 Echo: Normal biventricular size and systolic function without regional wall motion abnormality. Estimated LVEF 55-60%. Mild concentric left ventricular hypertrophy. Mild aortic regurgitation. No prior study available for comparison.
PFT's:
Reports and relevant images were personally reviewed.
Critical Care time 55 mins -- The patient is admitted for acute critical illness for the treatment of vital organ failure and/or prevention of further life-threatening conditions. Total care includes time spent in review of history, physical exam,
medications, hemodynamic/ventilator parameters, laboratory data, imaging and discussion with house staff, pharmacy, respiratory therapy, foam caster, and nursing.
[2024-09-25 07:46] LABS: Glucose - Point of Care 129 mg/dl (70-99)
[2024-09-25 07:50] LABS: Glucose - Point of Care 121 mg/dl (70-99)
--- NOTE | 2024-09-25 08:32 | W.PN.HOSP.TC ---
Today's Communication/Plan
-
Start on oral diet
Transition to subcutaneous insulin
Consult ID
Continue with Zosyn
Transfer to [facility] [place]
Assessment / Plan
Assessment / Plan
#Complicated UTI with severe sepsis.
Hemodynamics are stable. Improved sepsis parameters.
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 There is also bilateral hydronephrosis left more than right. No obstructing calculus. Some of the gas in the system may be because of catheterization but with gas
in bladder wall raises concern for infectious etiology.
No history of ESBL isolates.
Currently covered with Zosyn which I agree. Consult ID.
#Neurogenic bladder
Patient self catheterizes.
For now we will leave Clark catheter in.
Urology following.
#DKA secondary to sepsis
Anion gap normalized. No GI symptoms.
Start on diabetic diet.
Switch to subcutaneous insulin regimen-Lantus, nutritional insulin and sliding scale.
With current complicated UTI and sepsis I would prefer to treat patient with insulin regimen while in hospital.
With complicated UTI Jardiance may not be an optimal treatment regimen for him.
He says his hemoglobin A1c was 6.3 recently while he is on metformin, glimepiride, Jardiance and Ozempic weekly subcutaneous injection. Preference would be to continue his oral regimen on discharge except Jardiance . If glycemic control is poor
then he may need to go on insulin as an outpatient. Advised to follow-up with his assistant sales director after discharge.
# History of SVT
-Pacemaker placement 09/19/2023
#HTN - continue Toprol 25mg bid and doxazosin
#mixed hyperlipidemia - continue rosuvastatin, ezetimibe 10, and fenofibrate
#DVT prophylaxis
-Lovenox
#CODE status
-full code
Transfer to [facility] [place]
Total time spent on today's encounter was 52 minutes which included time spent in counseling the patient/family regarding diagnosis and treatment plan as listed above, goals of care, and symptom management. Case was discussed with nursing staff,
specialists, and care coordinators/case management. All labs and imaging personally reviewed by me. Remainder the time spent in detailed review of previous records, lab data, imaging, and other medical provider documentation.
Anticipated Discharge: > 48 hours
Subjective/Interval History
-
Date of Service: September 25, 2024
No further chills. No fevers.
Resolved nausea. Denies any abdominal pain or flank pain. No diarrhea.
Currently catheterized. Improved hematuria.
Denies any shortness of breath or chest pain.
He remembers having a UTI 2 years ago and then now. He does self-catheterizes last 2 years.
Is been diabetic for many years but never been on insulin. He is on combination of metformin, glipizide, Jardiance and Ozempic. Follows with assistant sales director at [facility].
Objective Data
-
Labs:
Laboratory Results
09/24/24 09/25/24 09/25/24
23:40 04:14 04:14
WBC 10.8
Hgb 12.2 L
Hct 35.5 L
Plt Count 207 D
Sodium 139 138 138
Potassium 4.4 3.6
Chloride 106
Carbon Dioxide 20 L
BUN 25 H
Creatinine 0.8
Glucose 141 H
Calcium 9.1
09/25/24 09/25/24 09/25/24
04:14 04:14 04:14
WBC
Hgb
Hct
Plt Count
Sodium
Potassium 3.6
Chloride 107 107
Carbon Dioxide 20 L 20 L
BUN 23 H
Creatinine
Glucose
Calcium
09/25/24 09/25/24 09/25/24
04:14 04:14 04:14
WBC
Hgb
Hct
Plt Count
Sodium
Potassium
Chloride
Carbon Dioxide
BUN 23 H
Creatinine 0.8 0.8
Glucose 140 H 157 H
Calcium 8.6
09/25/24 09/25/24
04:14 08:30
WBC
Hgb
Hct
Plt Count
Sodium Pending
Potassium Pending
Chloride Pending
Carbon Dioxide Pending
BUN Pending
Creatinine Pending
Glucose Pending
Calcium 8.6 Pending
Vital Signs:
Vital Signs
Temp Pulse Resp BP Pulse Ox
99 F 72 19 98/50 94
09/25/24 07:23 09/25/24 07:00 09/25/24 07:00 09/25/24 07:00 09/25/24 07:00
I&O
09/24/24 09/25/24 09/26/24
06:59 06:59 06:59
Intake Total 2033
Output Total 2524
Balance -491 / -491
Review of Systems
-
EENT: Denies Sore Throat
Respiratory: Denies Cough or Trouble Breathing
Cardiac: Denies Chest Pain
Neuro: Denies Dizzy
Physical Exam
-
General: Comfortable
Respiratory: Clear to Auscultation and Non Labored Respirations; Negative Accessory Resp Muscle Use
Cardiac: Regular Rhythm and S1/S2
GI: Soft and Nontender
Genito-urinary: Clark (clearing hematuria)
Neuro: AO x 3
Psych: Calm; Negative Confused
Data Reviewed
-
Labs: Labs Reviewed by me
[2024-09-25] MEDS: CARDURA PO (08:44)
[2024-09-25] MEDS: TOPROL XL PO (08:44)
[2024-09-25 08:45] LABS: Glucose - Point of Care 136 mg/dl (70-99)
[2024-09-25] MEDS: METAMUCIL, KONSYL 1 PACKET PO (08:45)
[2024-09-25] MEDS: TRICOR 145 MG PO (08:45)
[2024-09-25] MEDS: CRESTOR 40 MG PO (08:45)
--- NOTE | 2024-09-25 09:11 | PTCARENOTE ---
TT'd Dr. Pierce regarding discontinuance of IVF & Insulin drip and administering long acting insulin along with scheduled mealtime insulin with PRN coverage.
[2024-09-25 09:45] LABS: Glycohemoglobin (HgbA1c) 6.7 % (4.0-5.6)
--- NOTE | 2024-09-25 09:48 | CON.ID ---
Consultation
-
Date/Time Consultation Requested: 09/25/24 8:25
Date/Time Consultation Performed: 09/25/24 9:49
Requesting Provider: Dr Pierce
Performing Provider: Dr Yoo
Reason for Consultation: Emphysematous cystitis/pyelitis
Chief Complaint / Past History
Chief Complaint
bloody urine
History of Present Illness
Mr Messer is a 74 year old male with historyof DM2, neurogenic bladder with scheduled straight caths, pacemaker, who presented here for a 1 year history of lower back, penis, testicular pain, progresing to chills and hematuria. Denies: fevers,
headache, nasal congestion, cough, shortnes of breath abdominal pain. He was seen in the urologist office same day for hematuria - prescribed antibiotics but didnt take them. Developed nausea and vomiting x1 - bilious, daughter RN concerned and
referred him to the ER
For DM2 he is on metformin, glimepiride, Jardiance and Ozempic weekly subcutaneous injection
On arrival here patient afebrile, bp initially hypotensive now stable, wbc initially 15 now 11, hgb 12.2, plt 207, L shift noted on arrival and not repeated, pH 7.35, pco2 24, p02 101, hco3 13, na 138, cr 0.8, glucose 157, a1c 6.7, lactic acid 3.4
now 1.6, lfts wnl, UA >100 rbc/hpf and >100 wbc/hpf, many bacteria, bhb 5, CT abd/pel without IV or oral contrast: emphysematous cystitis and emphysematous left pyelitis. Bilateral hydronephrosis, left greater than right. No obstructing calculus,
CXR: no acute CP disease, blood cultures x2 with GNR, urine culture in progress, patient has been started on zosyn, ID is consulted for assistance with management. A la has been placed. DKA resolved overnight.
Past History
Additional Past Medical History:
Hyperlipidemia
Hypertension
CKD
Neurogenic bladder type 2 diabetes
Additional Past Surgical History:
SVT sick sinus syndrome - Pacemaker
Allergy History:
lisinopril Allergy (Unknown, Verified 09/24/24 12:05)
Unknown
Medications Reviewed: Yes
Social History
Tobacco: Non-Smoker
Alcohol: None
Drug: None
Family History
Family History: Not Pertinent
Review of Systems
Review of Systems
General: Negative Fever or Chills
All systems: All other systems were reviewed and were negative
Vital Signs
Temp Pulse Resp BP Pulse Ox
99 F 71 20 112/58 94
09/25/24 07:23 09/25/24 09:00 09/25/24 09:00 09/25/24 09:00 09/25/24 09:00
Physical Exam
Physical Exam
Constitutional: No Acute Distress and Chronically Ill
Cardiovascular: Regular Rate and S1/S2; Negative Murmur or Rub
Pulmonary: Clear and Symmetric; Negative Wheezes, Rales or Rhonchi
Gastrointestinal: Soft, Non Tender, Non Distended and Normal Bowel Sounds
Genito-Urinary: Negative Suprapubic Tenderness or CVA Tenderness
Skin: Warm and Dry; Negative Rash or Jaundice
Lab / Diagnostic Study Results
09/25/24 04:14
Abs Immat Gran (auto) 0.1 10^3/uL (0-0.05) H 09/24/24 12:09
Absolute Neuts (auto) 13.5 10^3/uL (1.4-6.5) H 09/24/24 12:09
Absolute Lymphs (auto) 0.7 10^3/uL (1.2-3.4) L 09/24/24 12:09
Absolute Monos (auto) 1.2 10^3/uL (0.1-0.6) H 09/24/24 12:09
Absolute Basos (auto) 0.0 10^3/uL (0-0.2) 09/24/24 12:09
Immature Gran % 0.7 % (0-0.5) H 09/24/24 12:09
Neutrophils % 87.0 % (42.2-75.2) H 09/24/24 12:09
Lymphocytes % 4.3 % (20.5-51.1) L 09/24/24 12:09
Monocytes % 7.8 % (1.7-9.3) 09/24/24 12:09
Eosinophils % 0.0 % (0-6) 09/24/24 12:09
Basophils % 0.2 % (0-2) 09/24/24 12:09
PT 14.6 Sec (11.4-14.6) 09/24/24 19:45
INR 1.11 09/24/24 19:45
Lactic Acid 1.6 mmol/L (0.7-2.0) 09/24/24 19:45
Ur Squamous Epith Cells 0-2 /LPF (Few) 09/24/24 16:05
Microbiology Results
Micro:
09/24/24 14:55 Blood Culture - Preliminary
Blood/Venous Positive culture in progress
Gram Stain - Preliminary
09/24/24 14:55 Blood Culture - Preliminary
Blood/Venous Positive culture in progress
Gram Stain - Preliminary
09/24/24 16:05 Urine Culture - Pending
Urine
Assessment / Plan
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
Emphysematous Cystitis
Gram negative bacteremia
Resolved DKA, in setting of SGLT2-I use
DM2 - well controlled a1c 6.7
- repeat blood cultures x2 in the AM
- follow up urine culture - if polymicrobial then will ask lab to ID all isolates
- agree with maintaining la catheter at least while hospitalized
- last qtc was 467
- repeat CT scan morning of 09/27 after just over 48 hours of treatment
- agree with plan to stop jardiance on dc
- continue zosyn - given clinical response will continue present dosage
[2024-09-25] MEDS: LANTUS 0.13 UNITS SC (09:56)
[2024-09-25 10:03] LABS: Glucose - Point of Care 131 mg/dl (70-99)
[2024-09-25] MEDS: D5/0.9% SODIUM CHLORIDE IV (11:07)
--- NOTE | 2024-09-25 11:41 | PTCARENOTE ---
Patient assisted oob to chair. Slightly unsteady on feet. Educated not to get up without assistance. Patient alert and oriented. NSR on tele. Lung sounds diminished throughout. Pulse ox 94-96% on RA. Transitioned off insulin drip and IVFs at 1000
s/p administration of 13 units Lantus. Tolerated eating breakfast. Appetite good. Clark in place for acute retention. Tea colored with sediment. Full assessment and care as charted on worklist. Downgraded to med surg level of care.
[2024-09-25] MEDS: NOVOLOG FLEXPEN-LOW RESISTANCE 1 UNITS SC (12:04)
[2024-09-25] MEDS: NOVOLOG FLEXPEN 4 UNITS SC ×2 (12:04→17:20)
[2024-09-25 12:16] LABS: Glucose - Point of Care 153 mg/dl (70-99)
[2024-09-25] MEDS: KCL 40 MEQ PO (12:19)
--- NOTE | 2024-09-25 12:59 | TRANSFER ---
Patient transported via wheelchair to with belongings. present for transport.
--- NOTE | 2024-09-25 13:06 | CM ---
CM following re: discharge planning.
Discussed in Rounds, reviewed pt's chart, met with pt and pt's spouse at beside.
Pt is a 74 year old male, admitted with primary dx of Urosepsis w/o shock.
Pt reports he lives with spouse 2SH, 3 steps to enter, has 2 supportive children and daughter is RN. 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 No DME, VN or SNF history.
PCP: Ya herrera
Pharmacy: [facility]
D/C plan: home with anticipated no needs. Family to transport at discharge.
CM will follow with discharge plan updates as hospitalization progresses
[2024-09-25 17:00] LABS: Glucose - Point of Care 116 mg/dl (70-99)
[2024-09-25] MEDS: NOVOLOG FLEXPEN-LOW RESISTANCE SC (17:12)
[2024-09-25] MEDS: LOVENOX 40 MG SC (17:13)
[2024-09-25] MEDS: ZETIA 10 MG PO (17:13)
[2024-09-25] MEDS: TOPROL XL 25 MG PO (20:36)
[2024-09-25 21:10] LABS: Glucose - Point of Care 147 mg/dl (70-99)
[2024-09-26] MEDS: ZOSYN 50 IV ×2 (04:37→09:24)
[2024-09-26 07:33] LABS: Hematocrit 34.7 % (39.0-52.0); Hemoglobin 11.5 g/dL (13.0-18.0); Mean Corp Hgb Conc. 33.1 g/dL (33.0-37.0); Mean Corpuscular Hgb 28.8 pg (27.0-31.0); Mean Corpuscular Volume 86.8 fL (80.0-94.0); Mean Platelet Volume 9.2 fL (7.4-10.4); Platelet Count 179 10^3/uL (130-400); Red Cell Dist. Width 13.7 % (11.5-14.5); White Blood Cell Count 8.3 10^3/uL (4.8-10.8)
[2024-09-26 07:40] VITALS: BP 122/55
[2024-09-26 07:42] LABS: Glucose - Point of Care 92 mg/dl (70-99)
[2024-09-26 07:59] LABS: Blood Urea Nitrogen 19 mg/dl (9-20); Calcium 8.5 mg/dl (8.4-10.2); Carbon Dioxide 21 mmol/L (22-30); Chloride 102 mmol/L (98-107); Estimated Creatinine Clearance 76 ml/min; Glucose 98 mg/dl (70-99); Potassium 4.3 mmol/L (3.5-5.1); Sodium 136 mmol/L (135-145); eGFR > 60.00
[2024-09-26] MEDS: CRESTOR 40 MG PO (08:23)
[2024-09-26] MEDS: CARDURA 1 MG PO (08:28)
[2024-09-26] MEDS: TOPROL XL 25 MG PO ×2 (08:29→20:18)
[2024-09-26] MEDS: METAMUCIL, KONSYL 1 PACKET PO (08:30)
[2024-09-26] MEDS: LANTUS 0.13 UNITS SC (08:34)
[2024-09-26] MEDS: TRICOR 145 MG PO (08:35)
[2024-09-26] MEDS: NOVOLOG FLEXPEN-LOW RESISTANCE SC ×3 (08:35→16:37)
[2024-09-26] MEDS: NOVOLOG FLEXPEN 4 UNITS SC ×3 (08:35→16:38)
[2024-09-26] MEDS: ZOFRAN 4 MG IV (10:32)
--- NOTE | 2024-09-26 10:52 | W.PN.ID1 ---
Date of Service
Date of Service: September 26, 2024
Today's Communication
- repeat CT scan morning of 09/27 after just over 48 hours of treatment
- agree with plan to stop jardiance on dc
- continue zosyn
Assessment / Plan
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
Emphysematous Cystitis
Gram negative bacteremia
Resolved DKA, in setting of SGLT2-I use
DM2 - well controlled a1c 6.7
- repeat blood cultures x2 in progress
- follow up urine culture - if polymicrobial then will ask lab to ID all isolates
- agree with maintaining la catheter at least while hospitalized
- last qtc was 467
- some RUQ pain new - possibly related to zosyn
- check LFTs in the am
- repeat CT scan morning of 09/27 after just over 48 hours of treatment
- agree with plan to stop jardiance on dc
- start meropenem stop zosyn
- plan eventual transition to oral therapy in next several days
Chief Complaint
-: Other (emphysematous pyelonephritis and cystitis)
Subjective / Review of Systems
afebrile
bp stable
no events overnight
Vital Signs / Physical Exam
Vital Signs
Vital Signs
Temp Pulse Resp BP Pulse Ox
98.6 F 78 18 122/57 96
09/26/24 07:40 09/26/24 08:28 09/26/24 07:40 09/26/24 08:28 09/26/24 10:12
Physical Exam
Constitutional: No Acute Distress
Cardiovascular: Regular Rate and S1/S2; Negative Murmur or Rub
Pulmonary: Clear and Symmetric; Negative Wheezes or Rales
Gastrointestinal: Soft, Distended (RUQ tenderness, worse with pressure), Non Distended, Normal Bowel Sounds and Other (some right upper quadrant tenderness, new )
Genito-Urinary: Negative Suprapubic Tenderness or CVA Tenderness
Skin: Warm and Dry; Negative Rash or Jaundice
Objective Data
Lab Data
Lab Results
09/26/24 07:15
09/26/24 07:16
PT 14.6 Sec (11.4-14.6) 09/24/24 19:45
INR 1.11 09/24/24 19:45
APTT 33.5 Sec (23.4-35.0) 09/24/24 19:45
Estimated Creat Clear 76 ml/min 09/26/24 07:16
Lactic Acid 1.6 mmol/L (0.7-2.0) 09/24/24 19:45
Total Bilirubin 1.2 mg/dl (0.2-1.3) 09/24/24 12:09
AST 25 U/L (17-59) 09/24/24 12:09
ALT 26 U/L (0-50) 09/24/24 12:09
Alkaline Phosphatase 69 U/L (38-126) 09/24/24 12:09
Most recent labs reviewed.
Micro Results:
09/24/24 14:55 Blood Culture - Preliminary
Blood/Venous Positive culture in progress
Gram Stain - Preliminary
09/24/24 14:55 Blood Culture - Preliminary
Blood/Venous Klebsiella pneumoniae
Gram Stain - Preliminary
09/26/24 07:26 Blood Culture - Pending
Blood/Venous
09/26/24 07:16 Blood Culture - Pending
Blood/Venous
09/24/24 16:05 Urine Culture - Pending
Urine
[2024-09-26 11:39] LABS: Glucose - Point of Care 134 mg/dl (70-99)
--- NOTE | 2024-09-26 12:55 | W.PN.HOSP.TC ---
Today's Communication/Plan
-
Continue with Zosyn
Follow repeat blood cultures
Repeat CT of the abdomen pelvis per ID
Assessment / Plan
Assessment / Plan
#Complicated UTI with severe sepsis.
Bacteremic UTI with Klebsiella pneumonia
Hemodynamics are stable. Improved sepsis parameters.
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 There is also bilateral hydronephrosis left more than right. No obstructing calculus. Some of the gas in the system may be because of catheterization but with gas
in bladder wall raises concern for infectious etiology.
No history of ESBL isolates.
Currently covered with Zosyn-continue. Appreciate ID input.
Repeat CT of the abdomen pelvis pending today to follow the emphysematous cystitis/pyelitis.
#Neurogenic bladder
Patient self catheterizes.
For now we will leave Clark catheter in.
Urology following.
Resolved hematuria
#DKA secondary to sepsis
Anion gap normalized. No GI symptoms.
On diabetic diet.
Switched to subcutaneous insulin regimen-Lantus, nutritional insulin and sliding scale.
With current complicated UTI and sepsis I would prefer to treat patient with insulin regimen while in hospital.
With complicated UTI Jardiance may not be an optimal treatment regimen for him.
He says his hemoglobin A1c was 6.3 recently while he is on metformin, glimepiride, Jardiance and Ozempic weekly subcutaneous injection. Preference would be to continue his oral regimen on discharge except Jardiance . If glycemic control is poor
then he may need to go on insulin as an outpatient. Advised to follow-up with his senior data architect after discharge.
# History of SVT
-Pacemaker placement 09/19/2023
#HTN - continue Toprol 25mg bid and doxazosin
#mixed hyperlipidemia - continue rosuvastatin, ezetimibe 10, and fenofibrate
#DVT prophylaxis
-Lovenox
#CODE status
-full code
Anticipated Discharge: > 48 hours
Subjective/Interval History
-
Date of Service: September 26, 2024
Feeling bit nauseous today but no vomiting. Tolerating some diet.
No abdominal pain or flank pain.
Clark catheter in place but without any hematuria further.
Denies any fever or chills.
Objective Data
-
Labs:
Laboratory Results
09/26/24 09/26/24
07:15 07:16
WBC 8.3
Hgb 11.5 L
Hct 34.7 L
Plt Count 179
Sodium 136
Potassium 4.3
Chloride 102
Carbon Dioxide 21 L
BUN 19
Creatinine 0.8
Glucose 98
Calcium 8.5
Vital Signs:
Vital Signs
Temp Pulse Resp BP Pulse Ox
98.6 F 78 18 122/57 96
09/26/24 07:40 09/26/24 08:28 09/26/24 07:40 09/26/24 08:28 09/26/24 10:12
I&O
09/25/24 09/26/24 09/27/24
06:59 06:59 06:59
Intake Total 2033 / 2154 593 / 593
Output Total 2524 / 2524 2275 / 2275
Balance -491 / -370 -1682 / -1682
Review of Systems
-
Respiratory: Denies Trouble Breathing
Cardiac: Denies Chest Pain
Neuro: Denies Dizzy
Physical Exam
-
General: No Apparent Distress
HEENT: Moist Mucous Membranes
Respiratory: Clear to Auscultation
Cardiac: Regular Rhythm and S1/S2
GI: Soft and Nontender
Genito-urinary: No Costovertebral Tender, Clear Urine and Clark
Neuro: AO x 3
Psych: Calm
Data Reviewed
-
Labs: Labs Reviewed by me
[2024-09-26 15:10] VITALS: BP 115/56
[2024-09-26] MEDS: STERILE WATER FOR INJECTION 10 ML IV ×2 (15:11→22:06)
[2024-09-26] MEDS: MERREM 500 MG IV ×2 (15:12→22:06)
[2024-09-26 16:37] LABS: Glucose - Point of Care 139 mg/dl (70-99)
[2024-09-26] MEDS: LOVENOX 40 MG SC (17:04)
[2024-09-26] MEDS: ZETIA 10 MG PO (17:05)
[2024-09-26 18:48] LABS: Hepatitis C Antibody Negative (Negative)
[2024-09-26 21:17] LABS: Glucose - Point of Care 143 mg/dl (70-99)
[2024-09-26 23:51] VITALS: BP 126/58
[2024-09-27] MEDS: MERREM 500 MG IV ×2 (04:37→09:32)
[2024-09-27] MEDS: STERILE WATER FOR INJECTION 10 ML IV ×2 (04:37→09:31)
[2024-09-27 07:35] VITALS: BP 118/55
[2024-09-27 07:44] LABS: Hematocrit 33.9 % (39.0-52.0); Hemoglobin 11.4 g/dL (13.0-18.0); Mean Corp Hgb Conc. 33.6 g/dL (33.0-37.0); Mean Corpuscular Hgb 29.2 pg (27.0-31.0); Mean Corpuscular Volume 86.7 fL (80.0-94.0); Mean Platelet Volume 9.5 fL (7.4-10.4); Platelet Count 173 10^3/uL (130-400); Red Blood Cell Count 3.91 10^6/uL (4.70-6.10); Red Cell Dist. Width 13.7 % (11.5-14.5); White Blood Cell Count 6.1 10^3/uL (4.8-10.8)
[2024-09-27 07:52] LABS: ALT (SGPT) 39 U/L (0-50); AST (SGOT) 43 U/L (17-59); Albumin 3.2 g/dl (3.5-5.0); Alkaline Phosphatase 47 U/L (38-126); Blood Urea Nitrogen 20 mg/dl (9-20); Calcium 8.3 mg/dl (8.4-10.2); Carbon Dioxide 23 mmol/L (22-30); Chloride 100 mmol/L (98-107); Direct Bilirubin 0.3 mg/dl (0.0-0.4); Estimated Creatinine Clearance 87 ml/min; Glucose 105 mg/dl (70-99); Potassium 3.9 mmol/L (3.5-5.1); Sodium 135 mmol/L (135-145); Total Bilirubin 0.8 mg/dl (0.2-1.3); Total Protein 5.5 g/dl (6.3-8.2); eGFR > 60.00
[2024-09-27 08:33] LABS: Glucose - Point of Care 91 mg/dl (70-99)
[2024-09-27] MEDS: NOVOLOG FLEXPEN-LOW RESISTANCE SC ×2 (08:41→12:19)
--- NOTE | 2024-09-27 08:51 | W.PN.UPDATE ---
Update Note
Progress Note Update
Admitted w/ suspected cUTI.
CTAP w/o IV contrast on admission indicative of emphysematous cystitis and left emphysematous pyelitis.
H/o neurogenic bladder on CIC since summer 2023 (after UDS and cystoscopy outpatient testing).
On IV Zosyn for GN bacteremia.
09/27: CTAP w/o IV contrast => improvement in findings of emphysematous cystitis and left-sided emphysematous pyelitis
Progressed severe diffuse bladder wall thickening. However, this may be due to limited distention.
Mild prostate hypertrophy.
Hematuria resolved w/ Clark catheter decompression - from cUTI and likely traumatic self-catheterization prior to admission.
Recommendations:
- IV Zosyn per ID
- Would advise maintaining Clark catheter on discharge
- F/U in office next week for Clark catheter removal - plan to resume CIC x3-4 daily
[2024-09-27] MEDS: TRICOR 145 MG PO (09:27)
[2024-09-27] MEDS: TOPROL XL 25 MG PO ×2 (09:27→20:47)
[2024-09-27] MEDS: CRESTOR 40 MG PO (09:27)
[2024-09-27] MEDS: CARDURA 1 MG PO (09:27)
[2024-09-27] MEDS: NOVOLOG FLEXPEN 4 UNITS SC ×3 (09:28→16:36)
[2024-09-27] MEDS: LANTUS 0.13 UNITS SC (09:29)
[2024-09-27] MEDS: METAMUCIL, KONSYL 1 PACKET PO (09:31)
--- NOTE | 2024-09-27 11:31 | W.PN.ID1 ---
Date of Service
Date of Service: September 27, 2024
Today's Communication
- repeat CT scan - improvement
- agree with plan to stop jardiance on dc
- start bactrim plan 14 day total course 09/24-10/07
- stable for dc from ID perspective
Assessment / Plan
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
Emphysematous Cystitis
Gram negative bacteremia
Resolved DKA, in setting of SGLT2-I use
DM2 - well controlled a1c 6.7
- repeat blood cultures x2 in progress no growth to date
- urine culture K pneumoniae
- agree with maintaining la catheter at least while hospitalized - management per urology
- LFTs wnl
- repeat CT scan - improvement
- agree with plan to stop jardiance on dc
- start bactrim plan 14 day total course 09/24-10/07
- encouraged patient to keep up his fluid intake while on bactrim
- stable for dc from ID perspective
Chief Complaint
-: Other (emphysematous pyelonephritis and cystitis)
Subjective / Review of Systems
afebrile
bp stable
no events overnight
no further abdominal pain, resolved flank tenderness
Vital Signs / Physical Exam
Vital Signs
Vital Signs
Temp Pulse Resp BP Pulse Ox
97.5 F 66 18 118/55 95
09/27/24 07:35 09/27/24 09:27 09/27/24 07:35 09/27/24 09:27 09/27/24 07:35
Physical Exam
Constitutional: No Acute Distress
Cardiovascular: Regular Rate and S1/S2; Negative Murmur or Rub
Pulmonary: Clear and Symmetric; Negative Wheezes or Rales
Gastrointestinal: Soft, Non Tender, Non Distended and Normal Bowel Sounds
Genito-Urinary: Negative Suprapubic Tenderness or CVA Tenderness
Skin: Warm and Dry; Negative Rash or Jaundice
Objective Data
Lab Data
Lab Results
09/27/24 07:03
09/27/24 07:03
PT 14.6 Sec (11.4-14.6) 09/24/24 19:45
INR 1.11 09/24/24 19:45
APTT 33.5 Sec (23.4-35.0) 09/24/24 19:45
Estimated Creat Clear 87 ml/min 09/27/24 07:03
Lactic Acid 1.6 mmol/L (0.7-2.0) 09/24/24 19:45
Total Bilirubin 0.8 mg/dl (0.2-1.3) 09/27/24 07:03
AST 43 U/L (17-59) 09/27/24 07:03
ALT 39 U/L (0-50) 09/27/24 07:03
Alkaline Phosphatase 47 U/L (38-126) 09/27/24 07:03
Most recent labs reviewed.
CT Scan: Image Reviewed and Report Reviewed (Improved findings suggesting emphysematous cystitis and left-sided emphysematous pyelitis Progressed severe diffuse bladder wall thickening. However, this may be due to limited distention. )
Micro Results:
09/24/24 16:05 Urine Culture - Final
Urine Klebsiella pneumoniae
09/24/24 14:55 Blood Culture - Preliminary
Blood/Venous Klebsiella pneumoniae
Gram Stain - Preliminary
09/24/24 14:55 Blood Culture - Preliminary
Blood/Venous Klebsiella pneumoniae
Gram Stain - Preliminary
09/26/24 07:26 Blood Culture - Preliminary
Blood/Venous No Growth in 24 hours- Final report to follow
09/26/24 07:16 Blood Culture - Preliminary
Blood/Venous No Growth in 24 hours- Final report to follow
Care Review
Plan reviewed with: Physician (Dr Stan arcos)
--- NOTE | 2024-09-27 11:57 | W.PN.HOSP.TC ---
Today's Communication/Plan
-
Continue antibiotics
PT OT eval
DC planning
Assessment / Plan
Assessment / Plan
#Complicated UTI with severe sepsis.
Bacteremic UTI with Klebsiella pneumoniae. Repeat blood cx neg so fare.
Hemodynamics are stable. Resolved sepsis parameters.
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 There is also bilateral hydronephrosis left more than right. No obstructing calculus. Some of the gas in the system may be because of catheterization but with gas
in bladder wall raises concern for infectious etiology.
Currently covered with [employer]-continue. Appreciate ID input.
Repeat CT of the abdomen pelvis shows improvement in the emphysematous cystitis/pyelitis.
#Neurogenic bladder
Patient self catheterizes.
For now we will leave Clark catheter in.
Urology following.
Resolved hematuria
#DKA secondary to sepsis
Anion gap normalized. No GI symptoms.
On diabetic diet.
Switched to subcutaneous insulin regimen-Lantus, nutritional insulin and sliding scale.
With current complicated UTI and sepsis I would prefer to treat patient with insulin regimen while in hospital.
With complicated UTI Jardiance may not be an optimal treatment regimen for him.
He says his hemoglobin A1c was 6.3 recently while he is on metformin, glimepiride, Jardiance and Ozempic weekly subcutaneous injection. Preference would be to continue his oral regimen on discharge except Jardiance . If glycemic control is poor
then he may need to go on insulin as an outpatient. 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
DW Dr Torre his endo today -will DC home on metformin and glimepiride and Ozempic and hold his Jardiance. He will follow-up outpatient for the need of additional diabetes mellitus treatments.
# History of SVT
-Pacemaker placement 09/19/2023
#HTN - continue Toprol 25mg bid and doxazosin
#mixed hyperlipidemia - continue rosuvastatin, ezetimibe 10, and fenofibrate
#DVT prophylaxis
-Lovenox
#CODE status
-full code
DC when ok from ID standpoint
Anticipated Discharge: 24 - 48 hours
Subjective/Interval History
-
Date of Service: September 27, 2024
Patient feeling improved. No fever chills.
No nausea vomiting. Denies any abdominal pain/flank pain.
Objective Data
-
Labs:
Laboratory Results
09/27/24
07:03
WBC 6.1
Hgb 11.4 L
Hct 33.9 L
Plt Count 173
Sodium 135
Potassium 3.9
Chloride 100
Carbon Dioxide 23
BUN 20
Creatinine 0.7
Glucose 105 H
Calcium 8.3 L
Total Bilirubin 0.8
AST 43
ALT 39
Alkaline Phosphatase 47
Vital Signs:
Vital Signs
Temp Pulse Resp BP Pulse Ox
97.5 F 66 18 118/55 95
09/27/24 07:35 09/27/24 09:27 09/27/24 07:35 09/27/24 09:27 09/27/24 07:35
I&O
09/26/24 09/27/24 09/28/24
06:59 06:59 06:59
Intake Total 593 / 593 2650 / 2650
Output Total 2275 / 2275 2850 / 2850 700 / 700
Balance -1682 / -1682 -200 / -200 -700 / -700
Review of Systems
-
Respiratory: Denies Trouble Breathing
Cardiac: Denies Chest Pain
Neuro: Denies Dizzy
Physical Exam
-
General: No Apparent Distress
Respiratory: Non Labored Respirations; Negative Accessory Resp Muscle Use
Cardiac: Regular Rhythm and S1/S2
GI: Soft and Nontender
Neuro: AO x 3
Data Reviewed
-
Labs: Labs Reviewed by me
[2024-09-27 12:18] LABS: Glucose - Point of Care 109 mg/dl (70-99)
[2024-09-27] MEDS: BACTRIM DS 800 MG/160 MG 1 TABLET PO ×2 (12:41→20:47)
[2024-09-27] MEDS: MIRALAX 17 GRAMS PO (15:13)
[2024-09-27 15:20] VITALS: BP 118/63
[2024-09-27 15:40] VITALS: BP 128/58; BP 179/92; PULSE 101; PULSE 63; O2SAT 95; O2SAT 97
--- NOTE | 2024-09-27 16:12 | W.DCSUMMARY ---
Discharge Summary
Discharge Data
Date of Admission: 09/24/24
Date of Discharge: 09/28/24
-
Pending Results: No
Hospital Course
Primary diagnosis:
Complicated urinary tract infection with severe sepsis
Emphysematous cystitis
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
Bacteremic urinary tract infection with Klebsiella pneumonia
Neurogenic bladder-patient self-catheterizes at home
Diabetic ketoacidosis
Secondary diagnosis:
Diabetes mellitus type 2-hemoglobin A1c 6.7
Hypertension
Hyperlipidemia
Hospital course:
Patient has history of neurogenic bladder and self-catheterizes at home presented with severe sepsis secondary to complicated UTI. CT imaging showed emphysematous cystitis and emphysematous pyelitis on the left. He was also in DKA secondary to it.
He responded well to medical treatments. He was bacteremic with Klebsiella pneumoniae in the bloodstream which was coming from the urine.
Once he was clinically stable he was discharged on oral Bactrim for 14 more days. He was seen by ID team.
In view of UTI a Clark was placed and advised to be left in situ until his infection is under control. He would follow-up with urology as an outpatient.
Regarding diabetes mellitus he was doing good but with significant UTI Jardiance would not be a good choice for him and was stopped. 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
adjust treatments as needed as outpatient. While he was in the house he was treated with insulin basal bolus regimen.
Consultants on board:
Urology-Sonia Garcia
ID Rohit Schaefer
Discharge Plan
-
Patient Disposition: Home (Routine Discharge)
Discharge Diagnosis/Procedures: Complicated UTI with severe sepsis.
Bacteremic UTI with Klebsiella pneumonia
Neurogenic bladder
Patient self catheterizes
Diet: Diabetic, Carb Controlled
Activity: As tolerated
Driving Restrictions: As prior to admission
Bathing Restrictions: None
Referrals:
Adrian Santacruz MD [Active] - in one week
Ya Ventura DO [Family Provider] - in less than 1 week
Prescriptions:
New
sulfamethoxazole-trimethoprim 800-160 mg Tablet
1 tab PO BID Qty: 28 0RF
Rx Instructions:
take it till 10/07/24
Continued
psyllium Packet
1 packet PO DAILY
glimepiride 2 mg Tablet
3 mg PO QPM
metformin 1,000 mg Tablet
1,000 mg PO BID
metoprolol succinate 25 mg Tablet Extended Release 24 Hr
25 mg PO BID
Milltrium Senior Tablet
1 tab PO DAILY
ezetimibe 10 mg Tablet
10 mg PO QPM
rosuvastatin 40 mg Tablet
40 mg PO DAILY
fenofibrate 120 mg Tablet
130 mg PO DAILY
Ozempic 0.25 mg or 0.5 mg (2 mg/3 mL) Pen Injector
0.5 mg SC WE
doxazosin 1 mg tablet
1 mg PO DAILY
acetaminophen [Tylenol] 325 mg Tablet
650 mg PO Q4HPRN PRN (Reason: mild pain)
Discontinued
Jardiance 25 mg Tablet
25 mg PO DAILY
Discharge Orders:
Discharge Patient (As Directed); Ordered 09/28/24
Ordered By: Husam Pierce
Discharge Date and Time
Print Language: CITIZEN OF [place]
[2024-09-27 16:30] LABS: Glucose - Point of Care 177 mg/dl (70-99)
[2024-09-27] MEDS: ZETIA 10 MG PO (16:35)
[2024-09-27] MEDS: LOVENOX 40 MG SC (16:35)
[2024-09-27] MEDS: NOVOLOG FLEXPEN-LOW RESISTANCE 1 UNITS SC (16:37)
[2024-09-27 21:33] LABS: Glucose - Point of Care 118 mg/dl (70-99)
[2024-09-27 23:55] VITALS: BP 122/59
[2024-09-28 07:11] LABS: Glucose - Point of Care 114 mg/dl (70-99)
[2024-09-28 07:30] VITALS: BP 122/60
[2024-09-28] MEDS: NOVOLOG FLEXPEN-LOW RESISTANCE SC (07:32)
[2024-09-28] MEDS: LANTUS 0.13 UNITS SC (08:06)
[2024-09-28] MEDS: BACTRIM DS 800 MG/160 MG 1 TABLET PO (08:07)
[2024-09-28] MEDS: TRICOR 145 MG PO (08:07)
[2024-09-28] MEDS: TOPROL XL 25 MG PO (08:07)
[2024-09-28] MEDS: CRESTOR 40 MG PO (08:07)
[2024-09-28] MEDS: CARDURA 1 MG PO (08:08)
[2024-09-28] MEDS: METAMUCIL, KONSYL 1 PACKET PO (08:10)
[2024-09-28] MEDS: NOVOLOG FLEXPEN 4 UNITS SC ×2 (08:11→12:04)
[2024-09-28] MEDS: MIRALAX PO (08:11)
--- NOTE | 2024-09-28 09:21 | CM ---
Patient seen at bedside.
IMM explained & signed
discussed vn-declined
states has follow-up w/ urology Tues to remove la
PLAN: home, no needs
to transport
[2024-09-28 11:53] LABS: Glucose - Point of Care 162 mg/dl (70-99)
[2024-09-28] MEDS: NOVOLOG FLEXPEN-LOW RESISTANCE 1 UNITS SC (12:04)
--- NOTE | 2024-09-28 13:27 | W.PN.HOSP.TC ---
Today's Communication/Plan
-
DC
Assessment / Plan
Assessment / Plan
#Complicated UTI with severe sepsis.
Bacteremic UTI with Klebsiella pneumoniae. Repeat blood cx neg so fare.
Hemodynamics are stable. Resolved sepsis parameters.
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 There is also bilateral hydronephrosis left more than right. No obstructing calculus. Some of the gas in the system may be because of catheterization but with gas
in bladder wall raises concern for infectious etiology.
Currently covered with Zosyn-ID recommend switch to oral Bactrim for [address] of the abdomen pelvis shows improvement in the emphysematous cystitis/pyelitis.
#Neurogenic bladder
Patient self catheterizes.
For now we will leave Clark catheter in.
Urology following.
Resolved hematuria
#DKA secondary to sepsis
Anion gap normalized. No GI symptoms.
On diabetic diet.
Switched to subcutaneous insulin regimen-Lantus, nutritional insulin and sliding scale.
With current complicated UTI and sepsis I would prefer to treat patient with insulin regimen while in hospital.
With complicated UTI Jardiance may not be an optimal treatment regimen for him.
He says his hemoglobin A1c was 6.3 recently while he is on metformin, glimepiride, Jardiance and Ozempic weekly subcutaneous injection. Preference would be to continue his oral regimen on discharge except Jardiance . If glycemic control is poor
then he may need to go on insulin as an outpatient. 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
DW Dr Torre his endo today -will DC home on metformin and glimepiride and Ozempic and hold his Jardiance. He will follow-up outpatient for the need of additional diabetes mellitus treatments.
# History of SVT
-Pacemaker placement 09/19/2023
#HTN - continue Toprol 25mg bid and doxazosin
#mixed hyperlipidemia - continue rosuvastatin, ezetimibe 10, and fenofibrate
#DVT prophylaxis
-Lovenox
#CODE status
-full code
Medically stable for discharge today
Anticipated Discharge: Today
Subjective/Interval History
-
Date of Service: September 28, 2024
Has bowel movement yesterday.
No fever chills.
Tolerating diet.
Objective Data
-
Vital Signs:
Vital Signs
Temp Pulse Resp BP Pulse Ox
98.8 F 64 14 122/60 96
09/28/24 07:30 09/28/24 07:30 09/28/24 07:30 09/28/24 07:30 09/28/24 07:30
I&O
09/27/24 09/28/24 09/29/24
06:59 06:59 06:59
Intake Total 2650 / 2650 240 / 240
Output Total 2850 / 2850 3025 / 3025
Balance -200 / -200 -2785 / -2785
Review of Systems
-
Constitutional: Denies Fever or Chills
Respiratory: Denies Trouble Breathing
Cardiac: Denies Chest Pain
Abdomen/GI: Denies Abdominal Pain, Nausea, Vomiting, Diarrhea or Constipated
Neuro: Denies Dizzy
Physical Exam
-
General: Comfortable
Respiratory: Non Labored Respirations; Negative Accessory Resp Muscle Use
Cardiac: Regular Rhythm and S1/S2
GI: Soft and Nontender
Neuro: AO x 3
Psych: Calm
[2024-09-28 14:00] VITALS: BP 132/68
== END 2024-09-28 14:00 | disposition home or self-care (01) | DRG 698 ==
LOC: 4 EAST ACU 15:54
PROVIDERS: Emergency Medicine; Nurse Practitioner Primary Care; Registered Nurse; ADMITTING PHYSICIAN Internal Medicine; ATTENDING PHYSICIAN Internal Medicine; CONSULT PHYSICIAN Student in an Organized Health Care Education/Training Program; CONSULT PHYSICIAN Surgery; EMERGENCY PHYSICIAN Emergency Medicine; FAMILY PHYSICIAN Family Medicine; OTHER PHYSICIAN Internal Medicine
DX: T83.518A Infection and inflammatory reaction due to other urinary catheter, initial encounter (principal); A41.9 Sepsis, unspecified organism; E11.10 Type 2 diabetes mellitus with ketoacidosis without coma; R65.20 Severe sepsis without septic shock; I47.10 Supraventricular tachycardia, unspecified; N13.6 Pyonephrosis; E78.2 Mixed hyperlipidemia; N31.9 Neuromuscular dysfunction of bladder, unspecified; N18.9 Chronic kidney disease, unspecified; B96.1 Klebsiella pneumoniae [K. pneumoniae] as the cause of diseases classified elsewhere; I12.9 Hypertensive chronic kidney disease with stage 1 through stage 4 chronic kidney disease, or unspecified chronic kidney disease; N50.819 Testicular pain, unspecified; E11.22 Type 2 diabetes mellitus with diabetic chronic kidney disease; Y84.6 Urinary catheterization as the cause of abnormal reaction of the patient, or of later complication, without mention of misadventure at the time of the procedure; Y92.009 Unspecified place in unspecified non-institutional (private) residence as the place of occurrence of the external cause; Y73.2 Prosthetic and other implants, materials and accessory gastroenterology and urology devices associated with adverse incidents; Z87.891 Personal history of nicotine dependence; Z95.0 Presence of cardiac pacemaker; Z79.84 Long term (current) use of oral hypoglycemic drugs; Z79.85 Long-term (current) use of injectable non-insulin antidiabetic drugs; Z88.8 Allergy status to other drugs, medicaments and biological substances; Z87.440 Personal history of urinary (tract) infections
CPT/HCPCS: 71046; 74176; 80048; 80053; 81003; 81015; 82010; 82248; 82805; 82962; 83036; 83605; 85025; 85027; 85610; 85730; 86803; 87040; 87077; 87086; 87149; 87186; 87205; 93005; 97162; 97166; 99291